=== PATIENT | female | born 1990 | race Caucasian/White ===

== ENCOUNTER 2019-10-17 13:08 | Outpatient (CLI) | payer BC ==
--- NOTE | 2019-10-17 15:04 | ULT ---
RENAL ULTRASOUND WITH DOPPLER: Trimble scale images of both kidneys. Doppler study is performed with color Doppler, spectral analysis, and velocity recordings. INDICATION: Polycystic kidneys. 26 weeks . FINDINGS: The kidneys are enlarged. The right kidney measures 19 cm in length and the left kidney measures 17 cm in length. There are numerous bilateral renal cysts. The largest right cyst is measured at appro ximately 5 cm. The largest left renal cyst is measured at 3.5 to 4.0 cm. No hydronephrosis. DOPPLER STUDY: Right renal artery/aortic ratio: 0.85. Right arcuate artery resistive index: 0.63. Left renal artery/aortic ratio: 1.80. Left renal arcuate resistive index: 0.63. The urinary bladder is mildly distended with bladder volume recorded at 42 cc. Bladder appears unrem arkable. IMPRESSION: Polycystic kidneys. POS: [facility]
== END 2019-10-17 13:09 | disposition home or self-care (01) ==
LOC: ULT 13:08
PROVIDERS: ATTEND Student in an Organized Health Care Education/Training Program
DX: Q61.2 Polycystic kidney, adult type (principal)
CPT/HCPCS: 76770; 93975

== ENCOUNTER 2019-11-07 13:04 | Inpatient (IN) | payer BC, OTHER ==
[2019-11-07] MEDS ORDERED: Calcium Gluconate 4.6 MEQ in Sodium Chloride 0.9% 100 ML IVPB PRN (13:41)
[2019-11-07] MEDS ORDERED: Magnesium Sulfate 20 gm/500 ml 20 GM/500 ML BAG ONE (13:41)
[2019-11-07] MEDS ORDERED: hydrALAZINE 20 MG/ML VIAL ONE ×2 (13:41→22:08)
[2019-11-07] MEDS ORDERED: hydrALAZINE 20 MG/ML VIAL SLOW IVP PRN (13:43)
[2019-11-07] MEDS: Lactated Ringer's 1,000 ML IV SCH ×2 (13:48→23:50)
--- NOTE | 2019-11-07 13:48 | PDOC.FPROB ---
FMR OB H&P: HPI - History of Present Illness Chief Complaint: high bp's and le swelling Indentification: 29 y/o @ 28.6 wk dated by LMP c/w 8.0 wk sono History of Present Illness: pmhx of Polycystic kidneys and cHTN not on medications, presents to L&D after a phone visit this morning with PCP Dr. Alcantara at [facility], for LE swelling. She had recently gone to [place] on vacation and forgot to take her BP cuff with her. She states over the last 1.5 weeks she has had increased swelling of the LE's and hands. Admits to pitting in her legs when her dog walked on her legs, leaving prints behind. She is unsure what her BP's have been recently. Denies CARABALLO, CP, Abd pain, vision changes, scotomas, or SOB. PT states she feels movements well, denies vag bleeding or abnormal discharge. Pt denies ctx or LOF. Pt states her diet has remained stable with no increase in sodium. Admits to drinking many fluids daily. Primary Care Physician: Quinton-KATHY FMR OB H&P: Current - Care : 1 Para: 0 Gestational age: 28.6 wks Due date: 01/24/20 Dating Criteria: LMP c/w 8.0 wk sono Course/Complications: cHTN polycystic kidneys - OB Labs Blood type: A RH: positive Antibody Screen: negative HIV: negative RPR: negative HepBsAg: negative Gonorrhea: negative Chlamydia: negative 1 hour gtt: 2 hr GTT: 75. 103. 87 A1c: 5.4% GBS: unknown H&H: 10.6/29.9 Platelets: 272 - First Trimester Ultrasound First trimester: 8.0 wk dating sono - Anatomy Survey Anatomy survey: 08/29/19: breech position, anterior placenta, 3VC, normal insertion, MVP 5.1. hadlock 90% 09/26/19: breech presentation, anterior placenta, 3VC, MVP 5.9 cm hadlock 68%. EFW 589 g @ 22.6 wga FMR OB H&P: History - Past Medical History PMH: polycystic kidneys cHTN - OB History OB History: baseline 24 hr urine pro: 65 from 07/2019 Toxoplasmosis risks in Thyroid peroxidase AB <1 Toxoplas IgM 0.339, NR - MANAGER NUCLEAR History MANAGER NUCLEAR History: ASCUS pap 06/2019, recommending colpo at 6 wks PP - Surgical History Sx History: none - Social History Social History: diet has been normal with no increased sodium intake. denies etoh, drugs or tobacco. - Family History Family History: mother: polycystics kidneys requiring kidney transplant maternal grandmother and grandfather: polycystic kidneys FMR OB H&P: Medications - Current Home Medications: Medication Instructions Recorded Confirmed Type Aspirin [Ecotrin] 81 mg PO DAILY 11/07/19 11/07/19 History Doxylamine Succinate/Vit B6 10 mg PO TID 11/07/19 11/07/19 History [Galen JEAN-BAPTISTE] Famotidine 20 mg PO BID 11/07/19 11/07/19 History Pnv No.95/Ferrous Fum/Folic AC 1 tablet PO DAILY 11/07/19 11/07/19 History [ Vitamins Tablet] Allergies/Adverse Reactions: Allergies Allergy/AdvReac Type Severity Reaction Status Date / Time No Known Allergies Allergy Unverified 11/07/19 13:53 FMR OB H&P: ROS - Review of Systems General: denies: fever/chills, fatigue Eyes: denies: eye pain, vision changes, double vision, scotomas, floaters ENT: denies: nasal congestion, sore throat Cardiovascular: reports: edema. denies: chest pain, palpitation, paroxysmal nocturnal dyspnea, orthopnea, claudication Respiratory: denies: cough, congestion, shortness of breath Gastrointestinal: reports: nausea, vomiting. denies: abdominal pain, diarrhea, constipation Genitourinary (Female): denies: incontinence, dysuria, polyuria, vaginal discharge, vaginal pain, vaginal bleeding, contractions, vaginal pressure Musculoskeletal: reports: swelling (hands and LE's). denies: pain, stiffness Neurologic: denies: numbness, syncope, seizures, weakness, loss of counsciousness, headache Integumentary: denies: itching, rash Breast: denies: skin changes Endocrine: denies: polyuria Hematologic/Lymphatic: denies: prolonged or excessive bleeding, enlarged lymph nodes Psychological: reports: anxiety FMR OB H&P: Vital Signs - Maternal Vital signs: BP upon arrival: 201/118, 207/108, 205/118 BP @ 15:45 157/88, HR 79 RR 16 Temp 99.4 F - Heart Tones Baseline: 130 Variability: moderate Acceleration: present Deceleration: absent [place] contractions every: none FMR OB H&P: Physical Exam - Physical Exam General: NAD, awake, alert and oriented HEENT: normocephalic and atraumatic, EOMI, MMM, conjunctiva clear, no scleral icterus, grossly normal vision, grossly normal hearing, good dention Neck: supple, FROM, trachea midline, no LAD, no JVD Chest: non-tender to palpation Breast: symmetric Heart: RRR, normal S1/S2, pulses present, other (soft sys murmur) Deviation from normal: Pitting edema 1+ up to knees bilaterally. General: CTAB, no respiratory distress, good air movement, no rales/rhonchi, no wheezing, no retractions Abdomen: soft, gravid, non-tender, bowel sound present Musculoskeletal: normal gait and station, pulses present, FROM in all four extremities, no misalignment/asymmetry, no atrophy Neurological: cranial nerves II through XII intact, sensation to pain,touch and proprioception grossly normal, DTR +4 (brisk DTR's at B knees and biceps), no clonus, no tremor, no focal deficit Skin: no rash, good tugor, capillary refill <2 seconds, no jaundice Lymphatic: no unusual bruising or bleeding, no purpura, no petechia Psychiatric: intact recent and remote memory, good judgement and insight, normal mood and affect FMR OB H&P: A/P - Problem List (1) Polycystic kidney disease Current Visit: Yes Status: Chronic Code(s): Q61.3 - POLYCYSTIC KIDNEY, UNSPECIFIED (2) Intrauterine Current Visit: Yes Status: Acute Code(s): Z34.90 - ENCNTR FOR SUPRVSN OF NORMAL , UNSP, UNSP TRIMESTER Comment: @ 28.6 wks (3) Chronic hypertension affecting Current Visit: Yes Status: Chronic Code(s): O10.919 - UNSP PRE-EXISTING HTN COMP , UNSP TRIMESTER (4) Severely increased blood pressure and edema during Current Visit: Yes Status: Acute Code(s): O14.10 - SEVERE PRE-ECLAMPSIA, UNSPECIFIED TRIMESTER Discussion: Date/Time: 11/07/19 1347 1. sIUP @ 28.5 wks gestation - FHT's reactive bsaeline 130, with accels and mod variability. - no ctx on TOCO - BPP ordered and 01/06. EFW ordered - Burial Vault Setter consulted appreciate recommendations - 3T labs ordered 2. cHTN with severe range pressures - Rule out superimposed Pre-E - cbc, cmp, urine pro/cr, uric acid and LDH ordered - started on Magnesium- Q4 hr mag checks - PRN hydralazine and labetalol for BP control <160/110 - MFM following pt and recommended BPP weekly starting at 32 wks, with delivery @ 38-39 wks - Consulting MFM, for further recommendations. 3. Polycystic Kidney disease - strong fhx in mother and maternal grandparents. 4. ASCUS pap 08/18 - colpo 6 wk pp This H&P was discussed with Dr. Melo and Dr. Ybarra who agree with the above documentation and plan. Addendum - Attending - Attending Attestation Date/Time: 11/07/19 5476 I personally evaluated the patient and discussed the management with Dr. Harding. I agree with the History, Examination, Assessment and Plan documented above with any addition or exceptions noted below. CKD adn cHTNnow with superimposed pre-E with severe range BP. Protein/Cr Ratio 9.8. Elevated Uric Acid. No evidence of HELLP. D/W MFM. Delivery criteria discussed. ultrasound pending.
[2019-11-07] MEDS: hydrALAZINE 20 MG/ML VIAL SLOW IVP PRN ×4 (13:49→22:09)
[2019-11-07 13:53] VITALS: BMI 34.8
[2019-11-07 14:10] LABS: #Eosinphils 0.1 thou/uL (0.0-0.7); #Lymphocytes 1.4 thou/uL (1.20-3.40); #Monocytes 0.7 thou/uL (0.11-0.59); #Neutrophils 10.5 thou/uL (1.40-6.50); %Basophils 0.2 % (0.0-1.0); %Eosinophils 0.4 % (0.0-10.0); %Lymphocytes 11.2 % (21.0-51.0); %Monocytes 5.5 % (0.0-10.0); %Neutrophils 82.6 % (42.0-75.0); Mean Corpuscular HGB CONC 36.1 g/dL (32.0-36.0); Mean Corpuscular Hemoglobin 32.7 pg (27.0-31.0); Mean Corpuscular Volume 90.5 fL (78.0-98.0); Mean Platelet Volume 8.6 fL (7.4-10.4); Platelet Count 210 thou/uL (130-400); RBC Distribution Width 11.7 % (11.5-14.5); Red Blood Cell (RBC) Count 3.36 mill/uL (4.20-5.40); White Blood Cell (WBC) Count 12.7 thou/uL (4.8-10.8)
[2019-11-07] MEDS ORDERED: Betamet Acet/Betamet Na Ph 30 MG/5 ML VIAL ONE (14:16)
[2019-11-07] MEDS: Labetalol HCl 100 MG/20 ML VIAL SLOW IVP SCH ×2 (14:24→15:00)
[2019-11-07] MEDS ORDERED: Ondansetron PF 4 MG/2 ML Vial IVP PRN (14:28)
[2019-11-07] MEDS ORDERED: Promethazine HCl 25 MG/ML VIAL IM PRN (14:28)
[2019-11-07] MEDS ORDERED: Magnesium Sulfate 20 GM/WATER 500 ML BAG IVPB SCH (14:30)
--- NOTE | 2019-11-07 14:40 | PDOC.BPN ---
- Brief Progress Note Pt's BP readings severe range X3 200's/110's back to back. Pt immediately given 10mg IV hydralazine, and started on 6 gm loading dose of magnesium BP 180s/100s. Repeat 10 hydralazine mg given IV. BP still elevated severe range. Given Lobetalol 10 mg. BP reading 160/89. Pt stable. No CARABALLO, Abd pain, scotomas, CP or SOB. Dr. Melo present and in agreement with above immediate action plan for pt. Monitoring BP readings closely, PRE-E Labs pending.
[2019-11-07 14:41] LABS: ALT (SGPT) 16 U/L (8-55); AST (SGOT) 20 U/L (5-34); Albumin 3.2 g/dL (3.5-5.0); Alkaline Phosphatase 69 U/L (40-110); Anion Gap 15 mmol/L (10-20); BUN (Urea Nitrogen) 14 mg/dL (7.0-18.7); Bilirubin, Total 0.3 mg/dL (0.2-1.2); Calc. Creatinine Clearance 206 mL/min (70-130); Calcium 8.7 mg/dL (7.8-10.44); Carbon Dioxide 20 mmol/L (22-29); Chloride 109 mmol/L (98-107); Estimated GFR-MDRD Greater than 90; Globulin 2.5 g/dL (2.4-3.5); Glucose 102 mg/dL (70-105); Magnesium 1.6 mg/dL (1.6-2.6); Potassium 3.6 mmol/L (3.5-5.1); Protein, Total 5.7 g/dL (6.0-8.3); Sodium 140 mmol/L (136-145)
[2019-11-07] MEDS: Betamet Acet/Betamet Na Ph 30 MG/5 ML VIAL IM SCH (14:44)
[2019-11-07 15:23] LABS: HBSAg Index 0.26 S/CO (0-0.99); Hep B Surf Ag Non-Reactive S/CO (NonReactive)
--- NOTE | 2019-11-07 15:29 | ULT ---
Sonographic biophysical profile exam Obstetric sonogram Limited HISTORY: Gestational hypertension. FINDINGS: Single intrauterine gestation in cephalic presentation. Grade 0 placenta is anterior. No ev idence of previa. Amniotic fluid index 13.6. Cervix closed and 4.6 cm. At real-time sonography, good tone, breathing movements, and gross movements were demonstrated. IMPRESSION : Sonographic biophysical profile score 8/8. No abnormalities are demonstrated.
[2019-11-07 15:35] LABS: Syphilis Antibody Nonreactive (Nonreactive); Syphilis Antibody Index 0.05 S/CO (<1.00 Non-Reactive)
[2019-11-07] MEDS: Labetalol HCl 100 MG/20 ML VIAL ONE ×2 (15:35→16:34)
[2019-11-07 15:52] LABS: Creatinine, Urine 89.31 mg/dL (47-110)
--- NOTE | 2019-11-07 16:17 | ULT ---
ULTRASOUND OBSTETRICAL COMPLETE: DATE: 11/07/2019 HISTORY: 29-year-old female. weight desired FINDINGS: number: Iglesias lie: Cephalic Maternal cervix: Not imaged Placenta: Anterior. No placenta previa. Amniotic fluid volume: GIA = 12cm heart rate: 141 bpm anatomy not evaluated biometry: Biparietal diameter (BPD): 7.8 cm 31 w 1 d Head circumference (HC): 28.5 cm 31 w 2 d Abdominal circumference (AC): 25.4 cm 29 w 4 d Femur length (FL): 5.4 cm 28 w 5 d Average ultrasound age (AUA): 30 w 1 d Estimated date of delivery (IVA): 01/15/2020 Estimated weight (EFW): 1419 g +/- 210 g IMPRESSION: 1) Live 3rd trimester intrauterine gestation. 2) Estimated gestational age of 30 weeks, 6 1 days 3) cephalic lie. 4) Estimated weight (EFW): 1419 g +/- 210 g
--- NOTE | 2019-11-07 16:21 | PDOC.BPN ---
- Brief Progress Note Discussed the pt's case with MFM, Dr. Carrillo, he suspects this is a cHTN exacerbation and recommends starting HCTZ 25 mg BID and labetalol 100 mg TID. Will f/u with Dr. Carrillo once all pre-e labs (urine pro/cr) is back, for further recommendations. EFW: 1419 g dated 30.1 wk anterior placenta and vertex presentation
--- NOTE | 2019-11-07 16:21 | PDOC.APC ---
Antepartum Consult GILES WILLARD is a 29 year old female at [28 6/7] gestational weeks. I was asked by Dr Alcantara to speak with the patient regarding anticipated course for a baby born at 28-29 weeks. I outlined that the timing and mode of delivery is a decision that will be made by the OB/FMC service. Once the patient is taken for delivery, the resuscitation team will be present. The initial focus will be on respiratory stabilization and may include CPAP or intubation with surfactant administration. I discussed that the patient will need to be admitted to the NICU in an Isolette due to temperature instability associated with prematurity. We will then obtain umbilical IV access as babies are at risk for hypoglycemia and will need IV nutrition. We discussed that babies born are at higher risk for feeding intolerance, infection and jaundice. We discussed the risk of NEC and that breastmilk is the best nutrition for babies and she is strongly encouraged to pump after delivery. Mother does plan to breastfeed and we discussed the availability of donor milk and mom consented to use. We discussed slowly increasing enteral feedings and the use of TPN while increasing feeding volumes. I outlined the need for a feeding tube (OG or NG) until suck/swallow/breathe reflex can be established. We discussed he will need ROP exams given the risk for abnormal retinal development and head US screening for IVH. I explained that the duration of hospital stay will be determined on the clinical course of the baby. I outlined the milestones that needed to be achieved to ensure safe discharge home. They had the opportunity to ask questions which were answered to their satisfaction. I encouraged them to contact our service again if additional questions arise. I spent a total of 20 minutes with patient & family with greater than 50% of the time counseling & coordinating care. Labs: Ante Labs Blood Type A POSITIVE 11/07/19 15:05 Hep Bs Antigen Non-Reactive S/CO (NonReactive) 11/07/19 13:59
--- NOTE | 2019-11-07 17:06 | PDOC.BPN ---
- Brief Progress Note Per MFM Dr. Carrillo recs: IUP @ 28.6 wks with maternal PCKD now with severe preeclampsia -steroids today and tomorrow - Mg for neuroprotection X12 hours -HELLP labs every 8 hours to confirm stability, when stable X2 draws please space out to twice weekly - twice weekly BPP - growth every 3 weeks - HCTZ 25 BID (don't go up on this) - Labetalol 100 TID (increase this for severe range values by 100) - In house till delivery - Deliver at 34w or sooner for max labetalol dose, neurological signs of severe disease, abnormal hellp labs, nrfht, BPP less than 6/10.
[2019-11-07 17:22] LABS: HIV (1/2) Antibody/Antigen Non-Reactive (NonReactive); HIV 1/2 INDEX 0.11 S/CO (<1.00)
--- NOTE | 2019-11-07 18:26 | PDOC.BPN ---
<Teresita Harding - Last Filed: 11/07/19 18:22> - Brief Progress Note S: pt resting, c/o CARABALLO. PT had episode of n/v which has resolved now. O: vitals: BP 166/92, HR 78. urine output 45 ml this hour and 100 ml last hour heart: RRR, soft sys murmur lungs: CTAB extremities: DTR's 2+ at B knees A&P: Pre-Eclampsia with severe features - q6hr mag levers - q4h mag checks - urine output stable, contineu LR @ 125 ml/hr and mag for 24 hours for severe range pressure in Pre-E and neuroprotection to fetus. - PRN meds and PO labetalol/HCTZ given. - Tylenol 1 g for CARABALLO given <Munir Brody - Last Filed: 11/07/19 19:52> Addendum - Attending - Attending Attestation Date/Time: 11/07/191946 I received checkout from Dr. Melo @ ~ 5 pm that BP well controlled with 2 doses of IV hydralazine and subsequent administration of po labetalol and hctz was going to take place. Subsequently notified by resident @ 642 of persistent pressures. When I arrived multiple doses of labetalol had been given previously and most recent BP's in non-severe range. Immediately after my exam repeat BP was in the 160's. I spoke with Dr. Durant who recommended lasix 20 mg IV and then to subsequently given labetalol if necessary. I spoke with patient. Her headache has improved with APAP. She has no RUQ pain or NATO pain. Her lungs are clear, she has no clonus. She is aware of the plan. Dr. Banks was updated, as well as Dr. Alcantara, her PCP.
[2019-11-07] MEDS: Acetaminophen 500 MG TAB PO PRN (18:32)
[2019-11-07] MEDS ORDERED: Labetalol HCl 100 MG/20 ML VIAL SLOW IVP PRN (19:48)
--- NOTE | 2019-11-07 19:53 | PDOC.BPN ---
<Tim Batista - Last Filed: 11/07/19 19:51> - Brief Progress Note Patient continues to have severe range pressures Headache feeling better Reflexes and U/O appropriate Discussed possibility, r/b/a, for c/s with patient, she is in understanding. Discussed case with MFM, rec'd lasix 20mg IV. Then labetalol 80 mg IV if needed. If pressures are still severe would need c/s per MFM. Will follow closely. <Munir Brody - Last Filed: 11/07/19 22:11> Addendum - Attending - Attending Attestation Date/Time: 11/07/19 9871 see my prior attestation.
[2019-11-07] MEDS ORDERED: Furosemide 20 MG/2 ML VIAL SLOW IVP SCH (20:00)
[2019-11-07] MEDS ORDERED: Lorazepam 2 MG/ML VIAL SLOW IVP PRN (20:13)
--- NOTE | 2019-11-07 20:37 | PDOC.BPN ---
<Tim Batista - Last Filed: 11/07/19 20:34> - Brief Progress Note patient received 20mg IV lasix another severe range pressure >10 min after lasix 80mg IV labetalol given Discussed prognosis with patient and at bedside Will monitor BP for another 15 min, if persistently elevated will likely need to proceed with c/s. PCP updated <Munir Brody - Last Filed: 11/07/19 22:12> Addendum - Attending - Attending Attestation Date/Time: 11/07/19 2211 BP lowered with labetalol 80 to nonsevere range.
[2019-11-07] MEDS: Magnesium Sulfate 20 gm/500 ml 20 GM/500 ML BAG IVPB SCH (20:54)
[2019-11-07] MEDS ORDERED: Hydrochlorothiazide 25 MG TAB PO SCH (21:00)
[2019-11-07] MEDS ORDERED: Labetalol 100 MG TAB PO SCH (21:00)
--- NOTE | 2019-11-07 22:15 | PDOC.LDPN ---
Labor & Delivery Progress Note - Subjective Subjective: other (headache) - Objective Abnormal vital signs: x2 systolics in the 160's since labetalol 80 mg Uterine fundus: non tender FHT: category 1, variability present (+accels, no decels) [place] contractions every: quiet - Assessment (1) Pre-eclampsia, severe Code(s): O14.10 - SEVERE PRE-ECLAMPSIA, UNSPECIFIED TRIMESTER Current Visit: Yes Status: Acute Plan: other -: Discussed patient with Dr. Banks and asked for formal consultation. Repeat bp's have again risen to the severe range. After discussion will trial hydralazine 10 mg again, previous treatment discussed in detail with Dr. Banks. If pressures are uncontrollable will proceed with delivery. Discussed with patient and and they voice understanding and agreement.
[2019-11-07 22:31] LABS: Platelet Count 209 thou/uL (130-400)
[2019-11-07 23:02] LABS: Bilirubin, Total 0.4 mg/dL (0.2-1.2)
[2019-11-07 23:06] LABS: ALT (SGPT) 16 U/L (8-55); AST (SGOT) 20 U/L (5-34); Alkaline Phosphatase 67 U/L (40-110); Bilirubin, Direct 0.2 mg/dL (0.1-0.3); Bilirubin, Total 0.4 mg/dL (0.2-1.2); Protein, Total 5.9 g/dL (6.0-8.3)
[2019-11-07] MEDS ORDERED: NIFEdipine XL 30 MG TAB PO SCH (23:30)
[2019-11-07] MEDS: Metoclopramide HCl 10 MG/2 ML VIAL IVP PRN (23:36)
[2019-11-07] MEDS: diphenhydrAMINE 50 MG/ML VIAL IVP PRN (23:36)
[2019-11-07] MEDS ORDERED: hydrALAZINE 20 MG/ML VIAL SLOW IVP SCH (23:45)
--- NOTE | 2019-11-07 23:58 | PDOC.BPN ---
<Tim Batista - Last Filed: 11/07/19 23:55> - Brief Progress Note Mag check Interval update: Dr. Banks consulted. Gave Benadryl, Reglan, procardia. Gave another PRN hydralazine. Pressure were mild range, last pressure 161/94 just after receiving procardia S: CARABALLO about the same, just received benadryl, reglan O: vitals: BP 161/94 P81 extremities: DTR's 2+ at B knees, no clonus U/O 100ml/hr over last 4 hrs A/P Goal is to achieve 48 hrs post steroids Discussed with family r/b/a of cautiously waiting vs c/s. Voiced understanding. If pressures continue severe range may need c/s later tonight Discussed with attending <Munir Brody - Last Filed: 11/08/19 11:28> Addendum - Attending - Attending Attestation Date/Time: 11/08/[address] Batista and Darren.
[2019-11-08] MEDS: Metoclopramide HCl 10 MG/2 ML VIAL IVP PRN ×3 (00:10→01:13)
[2019-11-08] MEDS: hydrALAZINE 20 MG/ML VIAL SLOW IVP PRN ×4 (00:36→19:47)
[2019-11-08] MEDS: diphenhydrAMINE 50 MG/ML VIAL IVP PRN (00:41)
[2019-11-08 00:50] LABS: Hemoglobin 11.1 g/dL (12.0-16.0); Mean Corpuscular HGB CONC 34.9 g/dL (32.0-36.0); Mean Corpuscular Volume 91.6 fL (78.0-98.0); Mean Platelet Volume 9.1 fL (7.4-10.4); Platelet Count 222 thou/uL (130-400); RBC Distribution Width 12.2 % (11.5-14.5); Red Blood Cell (RBC) Count 3.48 mill/uL (4.20-5.40); White Blood Cell (WBC) Count 18.1 thou/uL (4.8-10.8)
--- NOTE | 2019-11-08 03:49 | CON ---
DATE OF CONSULTATION: 11/08/2019 PRIMARY HEEL BREASTER: Josiane Alcantara MD CHIEF COMPLAINT: Uncontrolled blood pressures. HISTORY OF PRESENT ILLNESS: The patient is a 29-year-old G1, P0 female with an antepartum course complicated by polycystic kidneys and admitted to the hospital for elevated blood pressures. The patient was noted to have pressures on arrival in the 200s systolic, which initially was brought down to the 160s with 10 of hydralazine. Over the subsequent 10 hours, attempts were made to control the patient's blood pressure with IV labetalol without consistent success. REFRIGERATOR REPAIRMAN was consulted for input on management options for the patient. In reviewing the patient's medications with Dr. Batista and Dr. Brody, the patient was noted to have 10 of hydralazine and then multiple doses of IV labetalol up to 80 mg at a time x2 doses without significant benefit. In reviewing this medication course, the patient was noted to have a good response initially with hydralazine, and orders were made for the patient to receive a second dose. At the time of my evaluation, the patient reported a horrible headache. She confirmed her history of polycystic kidneys, but reports that she has never been on any antihypertensive medications until this admission. The patient reports headache. Denies fever. Denies chest pain, shortness of breath. The patient has vomited during this hospitalization. Denies abdominal pain, or vision changes. PAST MEDICAL HISTORY: Significant for chronic hypertension, off medication today, and polycystic kidneys. PAST SURGICAL HISTORY: Negative. ALLERGIES: NO KNOWN DRUG ALLERGIES. MEDICATIONS: 1. Aspirin. 2. Doxylamine 10 mg p.o. t.i.d. 3. Famotidine. 4. vitamin. Medications at this hospitalization, the patient has received; 1. Betamethasone 1 dose for lung maturity with the next dose in 24 hours. 2. Hydrochlorothiazide 25 mg p.o. b.i.d. 3. Magnesium for seizure prophylaxis. 4. P.o. labetalol 100 mg p.o. t.i.d., again increasingly larger doses of IV labetalol up to 80 mg. OB LABS: Blood type is A positive. Antibody screen is negative. HIV is negative. RPR is nonreactive. Hepatitis B surface antigen nonreactive. GC and chlamydia negative. Her 2-hour Glucola was 75, 103, and 87. H and H 10.6 and 29, platelets of 272,000. Labs in this hospitalization shows significant proteinuria with a protein to creatinine ratio of approximately 10. LFTs are within normal limits. Creatinine is 0.6, uric acid is 7.2. REVIEW OF SYSTEMS: Per HPI. PHYSICAL EXAMINATION: VITAL SIGNS: At the time of my evaluation, the patient was noted to have severe range pressures in the 160s over 90s. GENERAL: She appeared to be miserable with a bad headache. She is otherwise alert, oriented, cooperative, pleasant to interact with. HEAD: Normocephalic and atraumatic. LUNGS: Clear to auscultation bilaterally. HEART: Has a regular rate and rhythm. ABDOMEN: Gravid. heart tracing shows the fetus with a baseline in the 120s with moderate long-term variability, positive 15 x 15 accelerations, no decelerations. ASSESSMENT AND PLAN: The patient is a 29-year-old female with an intrauterine at 29 weeks, complicated by polycystic kidneys and chronic hypertension, off medications. Recommendations have been made to convert the patient over from labetalol, which does not seem to be working effectively to hydralazine, which appeared to bring her initial pressures down significantly with one dose of 10 mg. The patient has received a couple of doses of hydralazine over the last several hours and seems to have overall better blood pressure control. The patient has been counseled for the increased risk necessitating a for delivery. I have also counseled the nursing staff the regimen for migraine protocol in an attempt to control her headache, which upon the use seems to drastically improve her headache by about 50% on her initial couple doses. On re-evaluation, the patient was noted to be sleeping soundly. We will be keeping a close eye on her. She is planning on receiving a second dose of betamethasone tomorrow morning or tomorrow afternoon about 2 o'clock and she has been given Procardia XL 30 mg now and anticipate possible needs for IV hydralazine in the short run and adjustments to this medication further. Job ID: [id number]
--- NOTE | 2019-11-08 04:18 | PDOC.BPN ---
<Tim Batista - Last Filed: 11/08/19 04:18> - Brief Progress Note Mag check S: CARABALLO improved, sleeping comfortably, has been receiving reglan/benadryl O: vitals: only 1 severe range BP since midnight P81 extremities: DTR's 2+ at B knees, no clonus, strength equal and intact at upper and lower ext U/O ~100ml/hr A/P Goal is to achieve 48 hrs post steroids HCTZ, Nifedipine scheduled Hydralazine PRN <Munir Brody - Last Filed: 11/08/19 11:29> Addendum - Attending - Attending Attestation Date/Time: 11/08/19 1129 I personally evaluated the patient and discussed the management with Dr. Batista. I agree with the History, Examination, Assessment and Plan documented above with any addition or exceptions noted below.
[2019-11-08] MEDS: Magnesium Sulfate 20 gm/500 ml 20 GM/500 ML BAG IVPB SCH (06:33)
--- NOTE | 2019-11-08 06:56 | PDOC.OBAPN ---
FMR OB AP PN: Sub - Interval History Hospital Day: 2 Chief Complaint: headache Indentification: Interval History: 1 severe range pressure since 0030 after switching KEMAR oral meds FMR OB AP PN: Obj - Maternal Vital signs: BP: 131/66 HR: 81 Wt: 103.873 kg - Urine output I&O: UO/hr last 4 hours: 60ml, 50ml, 15ml, 15ml - Heart Tones [place] contractions every: none noted FMR OB AP PN: Exam - Physical Exam General: NAD, awake, alert and oriented HEENT: MMM, no scleral icterus, grossly normal vision, grossly normal hearing Neck: supple, FROM Heart: RRR, normal S1/S2, no murmurs/rubs/gallops, pulses present, other ( improved B/L LE edema comparted to yesterday) General: CTAB, no respiratory distress, good air movement, no rales/rhonchi, no wheezing, no retractions Abdomen: gravid Musculoskeletal: normal gait and station, FROM in all four extremities Neurological: cranial nerves II through XII intact, sensation to pain,touch and proprioception grossly normal, DTR +2, no clonus, no focal deficit Skin: no rash, good tugor Lymphatic: no unusual bruising or bleeding, no purpura, no petechia Psychiatric: intact recent and remote memory, good judgement and insight, normal mood and affect FMR OB AP PN: Data - Labs Lab results: Laboratory Results - last 24 hr 11/07/19 11/07/19 11/07/19 13:50 13:50 13:59 WBC RBC Hgb Hct MCV MCH MCHC RDW Plt Count MPV Neutrophils % Lymphocytes % Monocytes % Eosinophils % Basophils % Neutrophils # Lymphocytes # Monocytes # Eosinophils # Basophils # Sodium 140 Potassium 3.6 Chloride 109 H Carbon Dioxide 20 L Anion Gap 15 BUN 14 Creatinine 0.66 Estimated GFR (MDRD) Greater than 90 Glucose 102 Uric Acid 7.2 H Calcium 8.7 Magnesium 1.6 Total Bilirubin 0.3 Direct Bilirubin AST 20 ALT 16 Alkaline Phosphatase 69 Lactate Dehydrogenase 212 Serum Total Protein 5.7 L Albumin 3.2 L Globulin 2.5 Albumin/Globulin Ratio 1.3 U Random Total Protein Urine Creatinine Syphilis IgG/IgM Ab Hep Bs Antigen HIV 1&2 Antigen & Ab Blood Type Antibody Screen 11/07/19 11/07/19 11/07/19 13:59 13:59 13:59 WBC 12.7 H RBC 3.36 L Hgb 11.0 L Hct 30.4 L MCV 90.5 MCH 32.7 H MCHC 36.1 H RDW 11.7 Plt Count 210 MPV 8.6 Neutrophils % 82.6 H Lymphocytes % 11.2 L Monocytes % 5.5 Eosinophils % 0.4 Basophils % 0.2 Neutrophils # 10.5 H Lymphocytes # 1.4 Monocytes # 0.7 H Eosinophils # 0.1 Basophils # 0.0 Sodium Potassium Chloride Carbon Dioxide Anion Gap BUN Creatinine Estimated GFR (MDRD) Glucose Uric Acid Calcium Magnesium Total Bilirubin Direct Bilirubin AST ALT Alkaline Phosphatase Lactate Dehydrogenase Serum Total Protein Albumin Globulin Albumin/Globulin Ratio U Random Total Protein Urine Creatinine Syphilis IgG/IgM Ab Hep Bs Antigen Non-Reactive HIV 1&2 Antigen & Ab Blood Type A POSITIVE Antibody Screen NEGATIVE 11/07/19 11/07/19 11/07/19 13:59 13:59 15:05 WBC RBC Hgb Hct MCV MCH MCHC RDW Plt Count MPV Neutrophils % Lymphocytes % Monocytes % Eosinophils % Basophils % Neutrophils # Lymphocytes # Monocytes # Eosinophils # Basophils # Sodium Potassium Chloride Carbon Dioxide Anion Gap BUN Creatinine Estimated GFR (MDRD) Glucose Uric Acid Calcium Magnesium Total Bilirubin Direct Bilirubin AST ALT Alkaline Phosphatase Lactate Dehydrogenase Serum Total Protein Albumin Globulin Albumin/Globulin Ratio U Random Total Protein Urine Creatinine Syphilis IgG/IgM Ab Nonreactive Hep Bs Antigen HIV 1&2 Antigen & Ab Non-Reactive Blood Type A POSITIVE Antibody Screen 11/07/19 11/07/19 11/07/19 15:08 22:23 22:23 WBC RBC Hgb Hct MCV MCH MCHC RDW Plt Count MPV Neutrophils % Lymphocytes % Monocytes % Eosinophils % Basophils % Neutrophils # Lymphocytes # Monocytes # Eosinophils # Basophils # Sodium Potassium Chloride Carbon Dioxide Anion Gap BUN Creatinine Estimated GFR (MDRD) Glucose Uric Acid Calcium Magnesium Total Bilirubin 0.4 Direct Bilirubin AST ALT Alkaline Phosphatase Lactate Dehydrogenase 232 H Serum Total Protein Albumin Globulin Albumin/Globulin Ratio U Random Total Protein 833 H Urine Creatinine 89.31 Syphilis IgG/IgM Ab Hep Bs Antigen HIV 1&2 Antigen & Ab Blood Type Antibody Screen 11/07/19 11/07/19 11/07/19 22:23 22:23 22:23 WBC 18.1 H RBC 3.48 L Hgb 11.1 L Hct 31.9 L MCV 91.6 MCH 32.0 H MCHC 34.9 RDW 12.2 Plt Count 209 222 MPV 9.1 Neutrophils % Lymphocytes % Monocytes % Eosinophils % Basophils % Neutrophils # Lymphocytes # Monocytes # Eosinophils # Basophils # Sodium Potassium Chloride Carbon Dioxide Anion Gap BUN Creatinine Estimated GFR (MDRD) Glucose Uric Acid Calcium Magnesium 5.0 H Total Bilirubin 0.4 Direct Bilirubin 0.2 AST 20 ALT 16 Alkaline Phosphatase 67 Lactate Dehydrogenase Serum Total Protein 5.9 L Albumin 3.0 L Globulin Albumin/Globulin Ratio U Random Total Protein Urine Creatinine Syphilis IgG/IgM Ab Hep Bs Antigen HIV 1&2 Antigen & Ab Blood Type Antibody Screen FMR OB AP PN: A/P - Problem List (1) Intrauterine Current Visit: Yes Status: Acute Code(s): Z34.90 - ENCNTR FOR SUPRVSN OF NORMAL , UNSP, UNSP TRIMESTER Comment: @ 28.6 wks (2) Pre-eclampsia, severe Current Visit: Yes Status: Acute Code(s): O14.10 - SEVERE PRE-ECLAMPSIA, UNSPECIFIED TRIMESTER (3) Chronic hypertension affecting Current Visit: Yes Status: Chronic Code(s): O10.919 - UNSP PRE-EXISTING HTN COMP , UNSP TRIMESTER (4) Polycystic kidney disease Current Visit: Yes Status: Chronic Code(s): Q61.3 - POLYCYSTIC KIDNEY, UNSPECIFIED Disposition: 29YO @ 29 WGA by LMP c/w 8 week sono who presented to L&D for evaluation for severe peripheral edema and was found to have developed pre-e with severe range pressures superimposed on cHTN. # cHTN with superimposed pre-e with severe features - Patient presented to L&D with multiple severe range pressures as high as 200s systolic. Other than LE edema was completely asymptomatic. Urine protein creatinine ratio ~9 with significant proteinuria & uric acid just over 7. - Was given IV hydralazine x2 & IV labetalol x3 before BP got below severe range temporarily. Was started on Magnesium which she is still on. Becoming oliguric over last several hours with most recent UO 15mL/hr. CMP pending for this AM & will increase fluid rate and give a 500mL bolus as well. Per [facility] if becoming oliguric will need to be delivered. - Last severe range pressure 167/97 @ 00:30; otherwise, no severe range pressures since. Reports a persistent CARABALLO but markedly improved. - Continue PRN hydralazine & KEMAR procardia & HCTZ for BP control with goal to get BP controlled to delay delivery for at least an additional 1-2 weeks per MFM. - HELLP labs WNLs overnight which is reassuring with repeat labs pending for this AM. - MFM & laborists following pt and will keep them updated over course of today. # sIUP @ 29 wks gestation - BPP 8/8 on admission & EFW ~1419g. - Surgical Consultant on board & educated parents on likely course in anticipation of possible need for delivery if BPs remain uncontrolled. Appreciate the consultation and recommendations. - Continue PNVs. # Polycystic Kidney disease - Aware,noted incidentally on US during . Most likely reason for cHTN. Will need nephro follow-up following delivery. # ASCUS pap 08/18 - colpo 6 wk pp Dispo: Will continue IV magnesium and KEMAR & PRN meds as noted above for BP control with close monitoring in the L&D ICU pending [facility] recs. Discussion: Date/Time: 11/08/19 0654 This H&P was discussed with Dr. Carrillo and Dr. Melo who agree with the above documentation and plan. Addendum - Attending - Attending Attestation Date/Time: 11/08/19 1102 I personally evaluated the patient and discussed the management with Tate Juarez. I agree with the History, Examination, Assessment and Plan documented above with any addition or exceptions noted below. Nicolette and her and I ahd a healthy discussion regarding diagnoses, current therapy and monitoring and what things we are watching for such as CARABALLO, visual changes, abd pain, limited urine output, worsening labs, worsening BPP, and severe range BP in spite of maximal therapy. They expressed thier feelings of anxiety and frustration that this long-awaited was burdened with such difficulty. I expressed our shared concern for Nicolette and the baby, and that we are working toward her and her baby being healthy. They are appreciative of our care.
[2019-11-08 07:23] LABS: Hemoglobin 10.8 g/dL (12.0-16.0); Mean Corpuscular HGB CONC 33.8 g/dL (32.0-36.0); Mean Corpuscular Hemoglobin 31.2 pg (27.0-31.0); Mean Corpuscular Volume 92.5 fL (78.0-98.0); Mean Platelet Volume 8.4 fL (7.4-10.4); Platelet Count 247 thou/uL (130-400); RBC Distribution Width 12.2 % (11.5-14.5); Red Blood Cell (RBC) Count 3.46 mill/uL (4.20-5.40); White Blood Cell (WBC) Count 22.8 thou/uL (4.8-10.8)
[2019-11-08 07:35] LABS: Bilirubin, Total 0.4 mg/dL (0.2-1.2)
[2019-11-08 07:39] LABS: ALT (SGPT) 14 U/L (8-55); AST (SGOT) 19 U/L (5-34); Albumin 2.9 g/dL (3.5-5.0); Alkaline Phosphatase 75 U/L (40-110); Bilirubin, Direct 0.2 mg/dL (0.1-0.3); Bilirubin, Total 0.4 mg/dL (0.2-1.2); Magnesium 6.3 mg/dL (1.6-2.6); Protein, Total 5.8 g/dL (6.0-8.3)
[2019-11-08 08:05] LABS: Anion Gap 16 mmol/L (10-20); BUN (Urea Nitrogen) 14 mg/dL (7.0-18.7); Calc. Creatinine Clearance 209 mL/min (70-130); Calcium 7.7 mg/dL (7.8-10.44); Carbon Dioxide 18 mmol/L (22-29); Chloride 105 mmol/L (98-107); Estimated GFR-MDRD Greater than 90; Glucose 111 mg/dL (70-105); Potassium 3.4 mmol/L (3.5-5.1); Sodium 136 mmol/L (136-145)
[2019-11-08] MEDS ORDERED: Potassium Chloride 20 MEQ TAB PO SCH (08:15)
[2019-11-08] MEDS ORDERED: Sodium Chloride 0.9% 500 ML IV SCH (08:15)
--- NOTE | 2019-11-08 08:32 | PRG ---
DATE OF SERVICE: 11/08/2019 SUBJECTIVE: The patient is a 29-year-old female with an intrauterine at 29 weeks and 0 days, today admitted to the hospital for concerns of severe range of blood pressures in the setting of polycystic kidney disease and chronic hypertension. [employer] was consulted last night with concerns of persistent severe pressures were unrelenting to IV labetalol. Decision was made to convert her over to hydralazine, which seems to be keeping her pressures down well with p.o. Procardia 30 mg daily. Since this transition, she has only required 2 doses of IV hydralazine with her last dose being at 1 o'clock this morning. The p.o. Procardia was started last night and seems to be have taken effect. The patient reports that her headache this morning is still present, but much improved from where she was last night and has no other complaints. Current blood pressure is 131/66, heart rate of 81. Fetus is showing earlier this morning baseline in the 120s with moderate long-term variability. She has not had any monitoring since about 2:30. Urine output has fallen off about 5 o'clock this morning to 10-15cc an hour over the last couple hours. She was given a dose of Lasix last night, which may have depleted her intravascular space too much in combination with the hydralazine. We have asked the patient to increase her p.o. intake this morning. She may require a fluid bolus of about 250 to 500 cc. ASSESSMENT AND PLAN: The patient is a 29-year-old female with an intrauterine at 29 weeks, admitted for concerns of exacerbated chronic hypertension with exacerbation versus preeclampsia with severe features complicated by cystic kidney disease. The patient appears to be having blood pressures under much more tolerable levels with the Procardia XL 30 mg daily. We would recommend continuation of that medication. Should she need adjustments to medication in the future, increasing her dosing to b.i.d. would be one option. Should her urine output continue to be a problem other etiologies would need to be considered. Thank you for the opportunity to participate in Ms. Page's care. Should there be any more questions or we can help in any further way, please do not hesitate to let us know. Job ID: [id number] [facility]
[2019-11-08] MEDS: NIFEdipine XL 30 MG TAB PO SCH ×2 (09:01→21:16)
[2019-11-08] MEDS: Hydrochlorothiazide 25 MG TAB PO SCH ×3 (09:02→21:03)
[2019-11-08] MEDS: Lactated Ringer's 1,000 ML IV SCH ×2 (09:58→19:11)
[2019-11-08] MEDS ORDERED: Aspirin 81 mg Enteric Coated Tablet PO SCH (11:00)
--- NOTE | 2019-11-08 13:29 | PDOC.BPN ---
- Brief Progress Note Mag check S: Pt denies CARABALLO, SOB, visual changes/scotomas, abd pain. sleeping comfortably. O: vitals: No further severe range BP's this morning. high 159 systolic. mainly 140's sys/60-70's. 145/76, 83 HR lungs: CTAB extremities: DTR's 2+ at B knees and biceps, no clonus U/O 50/263/40/117 last 4 hours. A/P HCTZ, Nifedipine scheduled Hydralazine PRN Pt stable on Mag. Currently planning to d/c mag after 24 hours of treatment.
[2019-11-08] MEDS: Betamet Acet/Betamet Na Ph 30 MG/5 ML VIAL IM SCH (14:40)
[2019-11-08] MEDS: Acetaminophen 500 MG TAB PO PRN ×2 (14:56→21:15)
[2019-11-08] MEDS ORDERED: NIFEdipine XL 30 MG TAB PO SCH ×2 (16:00→21:00)
--- NOTE | 2019-11-08 18:57 | PDOC.BPN ---
- Brief Progress Note Approximately 15:15 pt had severe range pressure X2, 15 minutes apart. Pt given hydralazine 10 mg and the next readings were no longer severe range. Consulted with M, Dr. Carrillo, who states that it would be appropriate to increase the procardia XL dose to BID 30mg and to not go over 60 mg BID, or [address] Melo notified and aware/in agreement with the plan. Pt was switched to procardia 30 mg BID An afternoon dose was given @ 1600 of Procardia XL 30 mg Pt's BP's responded well to the changes made. Dr. Wan present for all of the above changes as well.
--- NOTE | 2019-11-09 02:11 | PDOC.BPN ---
<José Nunesis - Last Filed: 11/09/19 02:11> - Brief Progress Note Pt resting in bed. Pt has had no severe range pressures noted since receiving another dose of Procardia 30 mg yesterday evening. BP ranges from 140's-150's. Pt Urine Output has decreased from 25/hr to 40/hr overnight. IVF was stopped ealier yesterday. Continue to monitor O2 sats ranging 93-95%. No prior recordings noted by me or nursing. Phys Exam General: In no acute distress. Pt resting comfortably at this time. Cardio: RRR, no mumurs or gallops Lungs CTA-B, no wheezes or crackles Has pitting edema in hands and LE. Neuro: DTR +2, no clonus noted. Dispo: At this time pt BP stable. continue to monitor. Will continue increased procardia dose. Continue monitoring O2 sats. Urine Output decreased will continue to monitor. <Munir Brody - Last Filed: 11/09/19 08:33> Addendum - Attending - Attending Attestation Date/Time: 11/09/19 0833 Continue to monitor UOP, BP.
[2019-11-09 03:47] LABS: Hemoglobin 11.9 g/dL (12.0-16.0); Mean Corpuscular HGB CONC 33.9 g/dL (32.0-36.0); Mean Corpuscular Hemoglobin 31.5 pg (27.0-31.0); Mean Corpuscular Volume 92.9 fL (78.0-98.0); Mean Platelet Volume 8.2 fL (7.4-10.4); Platelet Count 254 thou/uL (130-400); RBC Distribution Width 12.8 % (11.5-14.5); Red Blood Cell (RBC) Count 3.77 mill/uL (4.20-5.40); White Blood Cell (WBC) Count 24.5 thou/uL (4.8-10.8)
[2019-11-09 04:07] LABS: ALT (SGPT) 14 U/L (8-55); AST (SGOT) 19 U/L (5-34); Alkaline Phosphatase 65 U/L (40-110); Anion Gap 15 mmol/L (10-20); BUN (Urea Nitrogen) 18 mg/dL (7.0-18.7); Bilirubin, Total 0.4 mg/dL (0.2-1.2); Calc. Creatinine Clearance 189 mL/min (70-130); Calcium 7.3 mg/dL (7.8-10.44); Carbon Dioxide 18 mmol/L (22-29); Chloride 106 mmol/L (98-107); Estimated GFR-MDRD Greater than 90; Glucose 123 mg/dL (70-105); Potassium 3.6 mmol/L (3.5-5.1); Sodium 135 mmol/L (136-145)
[2019-11-09 04:17] LABS: Band 11 % (5-11); Lymphocytes 1 % (21-51); MDiff Complete? YES; Monocytes 2 % (0-10); Myelocyte 1 % (0-0); Neutrophil 85 % (42-75)
--- NOTE | 2019-11-09 06:57 | PDOC.OBAPN ---
FMR OB AP PN: Sub - Interval History Hospital Day: 3 Chief Complaint: swelling Indentification: @ 29.1 WGA by LMP c/w 6.2 week sono Interval History: Severe range pressures w/ increased edema & oliguira overnight. FMR OB AP PN: Obj - Maternal Vital signs: BP: 160/84-->158/94 HR: 90 Pox: 96% on RA Wt: 103 kg - Urine output I&O: UO since ~2300 on 11/07 ~38 cc/hr FMR OB AP PN: Exam - Physical Exam General: NAD, awake, alert and oriented HEENT: normocephalic and atraumatic, MMM, grossly normal vision, grossly normal hearing Neck: supple, FROM Heart: RRR, normal S1/S2, no murmurs/rubs/gallops, other (significant nonpitting edema in B/L upper & LEs up to elbows & knees) General: CTAB, no respiratory distress, good air movement, no rales/rhonchi, no wheezing, no retractions Abdomen: gravid, bowel sound present Musculoskeletal: other (decreased ROM in B/L hands 2/2 edema) Neurological: cranial nerves II through XII intact, sensation to pain,touch and proprioception grossly normal, DTR +2, no clonus, no focal deficit Skin: no rash, good tugor Lymphatic: no unusual bruising or bleeding, no purpura, no petechia Psychiatric: intact recent and remote memory, good judgement and insight, normal mood and affect FMR OB AP PN: Data - Labs Lab results: Laboratory Results - last 24 hr 11/08/19 11/08/19 11/08/19 06:53 06:53 06:53 WBC RBC Hgb Hct MCV MCH MCHC RDW Plt Count MPV Neutrophils % (Manual) Band Neuts % (Manual) Lymphocytes % (Manual) Monocytes % (Manual) Myelocytes % Lymphocytes # Sodium Potassium Chloride Carbon Dioxide Anion Gap BUN Creatinine Estimated GFR (MDRD) Glucose Calcium Magnesium 6.3 H Total Bilirubin 0.4 0.4 Direct Bilirubin 0.2 AST 19 ALT 14 Alkaline Phosphatase 75 Lactate Dehydrogenase 239 H Serum Total Protein 5.8 L Albumin 2.9 L Globulin Albumin/Globulin Ratio 11/08/19 11/08/19 11/08/19 06:53 06:53 06:53 WBC 22.8 H RBC 3.46 L Hgb 10.8 L Hct 32.0 L MCV 92.5 MCH 31.2 H MCHC 33.8 RDW 12.2 Plt Count Cancelled 247 MPV 8.4 Neutrophils % (Manual) Band Neuts % (Manual) Lymphocytes % (Manual) Monocytes % (Manual) Myelocytes % Lymphocytes # Sodium 136 Potassium 3.4 L Chloride 105 Carbon Dioxide 18 L Anion Gap 16 BUN 14 Creatinine 0.65 Estimated GFR (MDRD) Greater than 90 Glucose 111 H Calcium 7.7 L Magnesium Total Bilirubin Direct Bilirubin AST ALT Alkaline Phosphatase Lactate Dehydrogenase Serum Total Protein Albumin Globulin Albumin/Globulin Ratio 11/08/19 11/09/19 11/09/19 13:52 03:38 03:38 WBC 24.5 H RBC 3.77 L Hgb 11.9 L Hct 35.0 L MCV 92.9 MCH 31.5 H MCHC 33.9 RDW 12.8 Plt Count 254 MPV 8.2 Neutrophils % (Manual) 85 H Band Neuts % (Manual) 11 Lymphocytes % (Manual) 1 L Monocytes % (Manual) 2 Myelocytes % 1 H Lymphocytes # Not Reportable Sodium 135 L Potassium 3.6 Chloride 106 Carbon Dioxide 18 L Anion Gap 15 BUN 18 Creatinine 0.72 Estimated GFR (MDRD) Greater than 90 Glucose 123 H Calcium 7.3 L Magnesium 6.6 H Total Bilirubin 0.4 Direct Bilirubin AST 19 ALT 14 Alkaline Phosphatase 65 Lactate Dehydrogenase Serum Total Protein 6.0 Albumin 3.0 L Globulin 3.0 Albumin/Globulin Ratio 1.0 L 11/09/19 03:38 WBC RBC Hgb Hct MCV MCH MCHC RDW Plt Count MPV Neutrophils % (Manual) Band Neuts % (Manual) Lymphocytes % (Manual) Monocytes % (Manual) Myelocytes % Lymphocytes # Sodium Potassium Chloride Carbon Dioxide Anion Gap BUN Creatinine Estimated GFR (MDRD) Glucose Calcium Magnesium Total Bilirubin Direct Bilirubin AST ALT Alkaline Phosphatase Lactate Dehydrogenase 287 H Serum Total Protein Albumin Globulin Albumin/Globulin Ratio FMR OB AP PN: A/P - Problem List (1) Intrauterine Current Visit: Yes Status: Acute Code(s): Z34.90 - ENCNTR FOR SUPRVSN OF NORMAL , UNSP, UNSP TRIMESTER Comment: @ 28.6 wks (2) Pre-eclampsia, severe Current Visit: Yes Status: Acute Code(s): O14.10 - SEVERE PRE-ECLAMPSIA, UNSPECIFIED TRIMESTER (3) Chronic hypertension affecting Current Visit: Yes Status: Chronic Code(s): O10.919 - UNSP PRE-EXISTING HTN COMP , UNSP TRIMESTER (4) Polycystic kidney disease Current Visit: Yes Status: Chronic Code(s): Q61.3 - POLYCYSTIC KIDNEY, UNSPECIFIED Disposition: 29YO @ 29.1 WGA by LMP c/w 8 week sono who presented to L&D for evaluation for severe peripheral edema and was found to have developed pre-e with severe range pressures superimposed on cHTN. # cHTN with superimposed pre-e with severe features - Patient presented to L&D with multiple severe range pressures as high as 200s systolic. Other than LE edema was completely asymptomatic. Urine protein creatinine ratio ~9 with significant proteinuria & uric acid just over 7. - Had recurrent severe range pressures overnight that responded to 10mg IV hydralazine x1 & 30mg PO nifedipine x2. No severe range since last dose of nifedipine @ ~2100 yesterday. Also reported clonus & hyper-reflxia overnight which has resolved this AM but patient has become oliguric again with average UO since ~0400 38cc/hr. Will give a 1x dose of IV lasix & resume Mg therapy in anticipation of delivery via C/S this AM. - Continue PRN hydralazine & KEMAR procardia & HCTZ for BP control & consider increasing AM nifedipine dose to 60 this AM. - HELLP labs WNLs overnight again. Will continue to trend. - Plan to proceed with delivery via pLTCS this AM given recurrent oliguria, severe edema & persistently elevated & borderline pressures despite increasing KEMAR BP regimen. # sIUP @ 29.1 wks gestation - BPP 01/06 on admission & EFW ~1419g. - Barrel Lathe Operator on board & educated parents on likely course in anticipation of possible need for delivery if BPs remain uncontrolled. Appreciate the consultation and recommendations. Will be present at time of delivery. - Continue PNVs. # Polycystic Kidney disease - Aware,noted incidentally on US during . Most likely reason for cHTN. Will need nephro follow-up following delivery. # ASCUS pap 08/18 - colpo 6 wk pp Dispo: Will resume Mg therapy & plan to proceed with delivery via pLTCS this AM for reasons noted above. Discussion: Date/Time: 11/09/19 0657 This H&P was discussed with Dr. Wan and Dr. Melo who agree with the above documentation and plan. Addendum - Attending - Attending Attestation Date/Time: 11/09/19 8726 I personally evaluated the patient and discussed the management with Dr. Wan this morning. I agree with the History, Examination, Assessment and Plan documented above with any addition or exceptions noted below.
[2019-11-09] MEDS ORDERED: Furosemide 40 MG/4 ML VIAL SLOW IVP SCH (07:30)
[2019-11-09] MEDS ORDERED: Calcium Gluconate 4.6 MEQ in Sodium Chloride 0.9% 100 ML IVPB PRN (07:50)
[2019-11-09] MEDS ORDERED: Magnesium Sulfate 20 GM/WATER 500 ML BAG IVPB SCH (07:50)
[2019-11-09] MEDS ORDERED: Potassium Chloride 20 MEQ TAB PO SCH ×2 (08:00)
[2019-11-09] MEDS ORDERED: Magnesium Sulfate 20 gm/500 ml 20 GM/500 ML BAG IVPB SCH (08:00)
[2019-11-09] MEDS ORDERED: Bicitra 30 ML UDCUP PO SCH (08:15)
[2019-11-09] MEDS ORDERED: CEFAZOLIN 2 GM in Premix Bag 1 BAG IVPB SCH (08:15)
--- NOTE | 2019-11-09 08:29 | PDOC.BPN ---
- Brief Progress Note Reviewed status overnight, noting progressive oliguria. Diffuse edema is increasing. Overnight BP required prn dosing of hydralazine for sever range in spite of increases to baseline therapy. Discussed clinical status with Nicolette and her . We are recommending delivery for end organ damage from severe pre-Eclampsia. Discussed reasons for expeditious delivery via primary . Discussed risks of such as bleeding, infection, hysterectomy, and . Restarting magnesium infusion for intrapartum and post seizure prophylaxis. Nursing and anesthesia notified.
[2019-11-09] MEDS ORDERED: MORPHINE 5 MG/10 ML PF VIAL ONE (08:43)
[2019-11-09] MEDS ORDERED: Oxytocin 10 UNITS/ML VIAL ONE ×2 (08:43→10:33)
[2019-11-09] MEDS ORDERED: PHENYLEPHRINE-NS 100 MCG/ML 10 ML SYRINGE ONE ×2 (08:44→09:47)
[2019-11-09] MEDS ORDERED: [UNRECOGNIZED DRUG - REMARK] PO SCH (09:00)
[2019-11-09] MEDS ORDERED: Aspirin 81 mg Enteric Coated Tablet PO SCH (09:00)
[2019-11-09] MEDS ORDERED: Ondansetron PF 4 MG/2 ML Vial ONE (10:02)
[2019-11-09] MEDS ORDERED: Dexamethasone 4 mg/ml Vial ONE (10:02)
[2019-11-09] MEDS ORDERED: Bisacodyl 10 MG SUPP PR PRN (10:42)
[2019-11-09] MEDS ORDERED: diphenhydrAMINE 25 MG CAP PO PRN (10:42)
[2019-11-09] MEDS ORDERED: Promethazine HCl 25 MG/ML VIAL IM PRN ×2 (10:42→11:01)
[2019-11-09] MEDS ORDERED: Simethicone Chewable 80 MG TAB PO PRN (10:42)
[2019-11-09] MEDS ORDERED: Lanolin Ointment 7 GM TUBE TOP PRN (10:42)
[2019-11-09] MEDS ORDERED: NS / Oxytocin 40 units/1000ml 1,000 ML IV SCH (10:45)
[2019-11-09] MEDS ORDERED: Promethazine HCl 25 MG SUPP PR PRN (11:01)
[2019-11-09] MEDS ORDERED: Ketorolac Tromethamine 30 MG/ML VIAL IVP PRN (11:01)
[2019-11-09] MEDS ORDERED: diphenhydrAMINE 50 MG/ML VIAL IVP PRN (11:01)
[2019-11-09] MEDS ORDERED: Naloxone HCl 0.4 mg/ml Vial IVP PRN ×2 (11:01)
[2019-11-09] MEDS ORDERED: Naloxone HCl 0.4 mg/ml Vial IV PRN (11:01)
[2019-11-09] MEDS ORDERED: Ondansetron PF 4 MG/2 ML Vial IVP PRN (11:01)
[2019-11-09] MEDS ORDERED: Communication Order-Pharmacy FS SCH (11:15)
[2019-11-09] MEDS ORDERED: Ketorolac Tromethamine 30 MG/ML VIAL ONE (11:38)
[2019-11-09] MEDS ORDERED: diphenhydrAMINE 50 MG/ML VIAL ONE (12:33)
--- NOTE | 2019-11-09 13:08 | PDOC.OBPPN ---
FMR OB PN: Subj - Interval History Hospital Day: 3 Day: 0 Chief Complaint: itching Indentification: G1 now P1001 who is PP day #0 s/p pLTCS for pre-e with severe fts on Mg Interval History: Patient's BPs WNLs & diruesing well since delivery. FMR OB PN: Obj - Maternal Vital signs: BP: 127/65 HR: 84 Pox: 96% on RA Wt: 103.873 kg - Urine output I&O: 350mL over last 1.5 hours, 400mL noted following delivery - Pain Management Pain scale: 0 Intervention: IV medication FMR OB PN: Exam - Physical Exam General: NAD, awake, alert and oriented HEENT: normocephalic and atraumatic, MMM, grossly normal vision, grossly normal hearing Neck: supple, FROM Heart: RRR, normal S1/S2, no murmurs/rubs/gallops, other (markedly improved upper and lower ext edema compared to this AM) General: CTAB, no respiratory distress, good air movement, no rales/rhonchi, no wheezing, no retractions Abdomen: soft, bowel sound present Musculoskeletal: FROM in all four extremities Neurological: cranial nerves II through XII intact, sensation to pain,touch and proprioception grossly normal, DTR +3, no focal deficit, other (slight clonus noted in LLE but not right) Skin: no rash, good tugor : bandage intact Lymphatic: no unusual bruising or bleeding, no purpura, no petechia Psychiatric: intact recent and remote memory, good judgement and insight, normal mood and affect FMR OB PN: Data - Labs Lab results: Laboratory Results - last 24 hr 11/07/19 11/08/19 11/09/19 13:59 13:52 03:38 WBC 24.5 H RBC 3.77 L Hgb 11.9 L Hct 35.0 L MCV 92.9 MCH 31.5 H MCHC 33.9 RDW 12.8 Plt Count 254 MPV 8.2 Neutrophils % (Manual) 85 H Band Neuts % (Manual) 11 Lymphocytes % (Manual) 1 L Monocytes % (Manual) 2 Myelocytes % 1 H Lymphocytes # Not Reportable Sodium Potassium Chloride Carbon Dioxide Anion Gap BUN Creatinine Estimated GFR (MDRD) Glucose Calcium Magnesium 6.6 H Total Bilirubin AST ALT Alkaline Phosphatase Lactate Dehydrogenase Serum Total Protein Albumin Globulin Albumin/Globulin Ratio Blood Type A POSITIVE Antibody Screen NEGATIVE Crossmatch See Detail 11/09/19 11/09/19 11/09/19 03:38 03:38 03:38 WBC RBC Hgb Hct MCV MCH MCHC RDW Plt Count MPV Neutrophils % (Manual) Band Neuts % (Manual) Lymphocytes % (Manual) Monocytes % (Manual) Myelocytes % Lymphocytes # Sodium 135 L Potassium 3.6 Chloride 106 Carbon Dioxide 18 L Anion Gap 15 BUN 18 Creatinine 0.72 Estimated GFR (MDRD) Greater than 90 Glucose 123 H Calcium 7.3 L Magnesium 4.1 H Total Bilirubin 0.4 AST 19 ALT 14 Alkaline Phosphatase 65 Lactate Dehydrogenase 287 H Serum Total Protein 6.0 Albumin 3.0 L Globulin 3.0 Albumin/Globulin Ratio 1.0 L Blood Type Antibody Screen Crossmatch FMR OB PN: A/P - Problem List (1) Intrauterine Current Visit: Yes Status: Acute Code(s): Z34.90 - ENCNTR FOR SUPRVSN OF NORMAL , UNSP, UNSP TRIMESTER Comment: @ 28.6 wks (2) Pre-eclampsia, severe Current Visit: Yes Status: Acute Code(s): O14.10 - SEVERE PRE-ECLAMPSIA, UNSPECIFIED TRIMESTER (3) Chronic hypertension affecting Current Visit: Yes Status: Chronic Code(s): O10.919 - UNSP PRE-EXISTING HTN COMP , UNSP TRIMESTER (4) Polycystic kidney disease Current Visit: Yes Status: Chronic Code(s): Q61.3 - POLYCYSTIC KIDNEY, UNSPECIFIED (5) examination following delivery Current Visit: Yes Status: Acute Code(s): Z39.2 - ENCOUNTER FOR ROUTINE FOLLOW-UP Disposition: 29YO @ 29.1 WGA by LMP c/w 8 week sono who presented to L&D for evaluation for severe peripheral edema and was found to have developed pre-e with severe range pressures superimposed on cHTN. # cHTN with superimposed pre-e with severe features - Patient presented to L&D with multiple severe range pressures as high as 200s systolic. Other than LE edema was completely asymptomatic. Urine protein creatinine ratio ~9 with significant proteinuria & uric acid just over 7. - Had recurrent severe range pressures overnight that responded to 10mg IV hydralazine x1 & 30mg PO nifedipine x2. No severe range since last dose of nifedipine @ ~2100 yesterday. Also reported clonus & hyper-reflexia overnight which has resolved this AM but patient had become oliguric again with average UO since ~0400 38cc/hr. s/p 1x dose of 40mg IV lasix & resumption of Mg therapy @ ~0845 this AM. Decision was made to proceed with pLTCS and patient has clinically improved significantly since delivery w/ normal range BPs & increased UO of 350mL over last 1.5 hours. - Serum Mg level 4.1 before resuming therapy this AM. Will recheck @ 1700 today. - Continue to monitor BPs closely w/ Q4Hr Mg checks until 24 hours s/p delivery. Will consider de-escalating PM BP regimen based on BPs over course of afternoon. # PP day #0 s/p pLTCS for problem #1 - Pain well controlled, tolerating liquids PO. Shah still in place 2/2 Mg therapy. Lovenox for VTE PPX to start @ 2100 today given significant proteinuria since admission and problem noted below. - Continue routine post-C/S care. # Polycystic Kidney disease - Aware, noted incidentally on US during . Most likely reason for cHTN. Will need nephro follow-up following delivery. # ASCUS pap 08/18 - colpo 6 wk pp Dispo: Will continue Mg therapy until 24 hours s/p delivery & continue Q4H Mg checks to evaluate for s/s of toxicity. Discussion: Date/Time: 11/09/19 5400 This H&P was discussed with Dr. Wan & Dr. Melo who agree with the above documentation and plan.
[2019-11-09] MEDS ORDERED: Ibuprofen 800 MG TAB PO SCH (14:00)
--- NOTE | 2019-11-09 17:11 | PDOC.BPN ---
- Brief Progress Note S: Patient reports feeling much better since delivery. No pain, vision changes, CARABALLO, SOB, or chest pain. Significantly better edema with full ROM in hands. Feels a little drowsy from Mg. O: BPs 154-124 systolic since delivery. All diastolics WNLs. BP: 126/66 HR: 73 UO: 45-100 mL/hr for last 4 hours PE: General: NAD Heart: RRR, no murmurs Pulm: Lungs CTAB MSK: Edema markedly improved in B/L upper & LEs Neuro: No focal deficits, hyporeflexia noted A/P: Pre-e w/ severe features superimposed on cHTN: Continue IV Mg therapy pending repeat serum Mg level @ 1700. Will hold antihypertensives unless BP reaches severe range. Continue monitoring overnight in L&D ICU.
[2019-11-09] MEDS ORDERED: Enoxaparin Sodium 40 MG/0.4 ML SYRINGE SC SCH (21:00)
[2019-11-09] MEDS: HYDROcodone/Acetaminophen 5/325 mg Tablet PO PRN (21:09)
--- NOTE | 2019-11-09 21:19 | PDOC.BPN ---
- Brief Progress Note S: Patient reports feeling much better. No CARABALLO, SOB, or chest pain. Significantly better edema with full ROM in hands. Feels a little drowsy from Mg. She states she has some vision lag on the mag. She also complains of some pain at the incision site O: BPs 130-140 systolic since last check. All diastolics WNLs. BP: 130/60 HR: 76 UO: 75-150 mL/hr for last 4 hours PE: General: NAD Heart: RRR, no murmurs Pulm: Lungs CTAB MSK: Edema markedly improved in B/L upper & LEs Neuro: No focal deficits, Reflexs 2+ brachial, radial, and patellar Mag level: 7.4 A/P: Pre-e w/ severe features superimposed on cHTN: Continue IV Mg therapy. Will hold antihypertensives unless BP reaches severe range. Continue monitoring overnight in L&D ICU.
[2019-11-09] MEDS: NIFEdipine XL 30 MG TAB PO SCH (21:40)
[2019-11-09] MEDS: Hydrochlorothiazide 25 MG TAB PO SCH (21:40)
[2019-11-09] MEDS: Prenatal Vitamin 1 TAB PO SCH (21:41)
[2019-11-09] MEDS: Ferrous Sulfate 325 MG TAB PO SCH (21:45)
[2019-11-09] MEDS: Docusate Calcium (SURFAK) 240 MG CAP PO SCH (22:45)
--- NOTE | 2019-11-10 01:34 | PDOC.BPN ---
- Brief Progress Note S: She is doing well. No CARABALLO, vision changes, abdominal pain, SOB, or chest pain. Edema similar to last check with full ROM in hands. Vision lag has resolved. O: BPs 130s/60-70s HR: 60-80s UO: 40-70 mL/hr for last 4 hours. PE: General: NAD Heart: RRR, no murmurs Pulm: Lungs CTAB MSK: Edema markedly improved in B/L upper & LEs Neuro: No focal deficits, Reflexs 2+ brachial, radial, and patellar. No clonus Mag level: 7.4 A/P: Pre-e w/ severe features superimposed on cHTN: Continue IV Mg therapy. Will hold antihypertensives unless BP reaches severe range. Continue monitoring overnight in L&D ICU.
--- NOTE | 2019-11-10 04:54 | PDOC.BPN ---
- Brief Progress Note S: She is doing well. No CARABALLO, vision changes, abdominal pain, SOB, or chest pain. Edema similar to last check with full ROM in hands. Vision lag has resolved. O: BPs 120s-140s/60-70s HR: 60-80s UO: 40-100 mL/hr overnight PE: General: NAD Heart: RRR, no murmurs Pulm: Lungs CTAB MSK: Edema markedly improved in B/L upper & LEs Neuro: No focal deficits, Reflexs 1+ brachial, radial, and patellar. No clonus Mag level: 7.4 A/P: Pre-e w/ severe features superimposed on cHTN: Continue IV Mg therapy. Will hold antihypertensives unless BP reaches severe range. Continue monitoring overnight in L&D ICU.
--- NOTE | 2019-11-10 07:03 | PDOC.OBPPN ---
FMR OB PN: Subj - Interval History Hospital Day: 4 Day: 1 Chief Complaint: mild abdominal pain Indentification: G1 now P0101 who is PP day #1 s/p pLTCS for pre-e w/ severe features. Interval History: BPs WNLs overnight w/o PO meds all day yesteday. UO WNLs. FMR OB PN: Obj - Maternal Vital signs: BP: 151/89 HR: 71 RR: 16 Tmax: 98.3F Wt: 103.873 kg - Urine output I&O: 11/09/19 11/10/19 11/11/19 06:59 06:59 06:59 Output Total 490 Balance -490 - Lochia Lochia: normal - Pain Management Intervention: oral medication FMR OB PN: Exam - Physical Exam General: NAD, awake, alert and oriented HEENT: normocephalic and atraumatic, MMM, no scleral icterus, grossly normal vision, grossly normal hearing, normal nasal mucosa Neck: supple, FROM Heart: RRR, normal S1/S2, no murmurs/rubs/gallops, pulses present, no edema General: CTAB, no respiratory distress, good air movement, no rales/rhonchi, no wheezing Abdomen: soft, fundus(cm) (firm just at umbilicus), other (appropriately TTP) Musculoskeletal: FROM in all four extremities Neurological: cranial nerves II through XII intact, sensation to pain,touch and proprioception grossly normal, DTR +1, no clonus, no focal deficit Skin: no rash, good tugor : incision healing well, no erythema, no edema, no drainage, appropriately tender Lymphatic: no unusual bruising or bleeding, no purpura, no petechia Psychiatric: intact recent and remote memory, good judgement and insight, normal mood and affect FMR OB PN: Data - Labs Lab results: Laboratory Results - last 24 hr 11/07/19 11/09/19 11/09/19 13:59 03:38 08:04 Magnesium 4.1 H COVID-19 PCR Not Detected Blood Type A POSITIVE Antibody Screen NEGATIVE Crossmatch See Detail 11/09/19 16:59 Magnesium 7.2 H COVID-19 PCR Blood Type Antibody Screen Crossmatch FMR OB PN: A/P - Problem List (1) Intrauterine Current Visit: Yes Status: Resolved Code(s): Z34.90 - ENCNTR FOR SUPRVSN OF NORMAL , UNSP, UNSP TRIMESTER Comment: @ 28.6 wks (2) Pre-eclampsia, severe Current Visit: Yes Status: Acute Code(s): O14.10 - SEVERE PRE-ECLAMPSIA, UNSPECIFIED TRIMESTER Qualifiers: Trimester: third trimester Qualified Code(s): O14.13 - Severe pre-eclampsia , third trimester (3) Chronic hypertension affecting Current Visit: Yes Status: Chronic Code(s): O10.919 - UNSP PRE-EXISTING HTN COMP , UNSP TRIMESTER (4) Polycystic kidney disease Current Visit: Yes Status: Chronic Code(s): Q61.3 - POLYCYSTIC KIDNEY, UNSPECIFIED (5) examination following delivery Current Visit: Yes Status: Acute Code(s): Z39.2 - ENCOUNTER FOR ROUTINE FOLLOW-UP Disposition: 29YO @ 29.1 WGA by LMP c/w 8 week sono who presented to L&D for evaluation for severe peripheral edema and was found to have developed pre-e with severe range pressures superimposed on cHTN. # cHTN with superimposed pre-e with severe features - Patient presented to L&D with multiple severe range pressures as high as 200s systolic. Other than LE edema was completely asymptomatic. Urine protein creatinine ratio ~9 with significant proteinuria & uric acid just over 7. - Attempted to control BP for ~48 hours to allow time for IM steroids to take effect for lung maturation for anticipated need for imminent delivery. Decision made to proceed with pLTCS yesterday after BPs started to rise again and patient was noted to be oliguric with severe diffuse edema. - BPs WNLs since delivery w/ normal UO overnight. Will resume KEMAR PO meds should BPs become >/= 160/110. D/c Mg therapy @ ~1000, 24 hours s/p delivery. Continue Q4H Mg checks until then. # PP day #1 s/p pLTCS for problem #1 - Pain well controlled on PO meds. Tolerating PO. Passing gas but no BM yet. Shah still in place 2/2 Mg therapy. Lovenox for VTE PPX given significant proteinuria since admission. - Continue routine post-C/S care. # Polycystic Kidney disease - Aware, noted incidentally on US during . Most likely reason for cHTN. Will need nephro follow-up following delivery. Nephrology consult placed today for patient to establish with them while inpatient per PCPs recs. # ASCUS pap 08/18 - colpo 6 wk pp Dispo: Will continue Mg therapy until 24 hours s/p delivery & continue routine post c/s care following d/c of Mg. Discussion: Date/Time: 11/10/19 0701 This H&P was discussed with Dr. Melo & Dr. Wan who agree with the above documentation and plan. Addendum - Attending - Attending Attestation Date/Time: 11/10/19 1011 I personally evaluated the patient and discussed the management with Dr. Ybarra. I agree with the History, Examination, Assessment and Plan documented above with any addition or exceptions noted below.
[2019-11-10] MEDS: HYDROcodone/Acetaminophen 5/325 mg Tablet PO PRN ×4 (07:42→20:05)
[2019-11-10 07:46] LABS: #Eosinphils 0.1 thou/uL (0.0-0.7); #Lymphocytes 1.5 thou/uL (1.20-3.40); #Monocytes 1.3 thou/uL (0.11-0.59); #Neutrophils 14.5 thou/uL (1.40-6.50); %Basophils 0.1 % (0.0-1.0); %Eosinophils 0.7 % (0.0-10.0); %Lymphocytes 8.3 % (21.0-51.0); %Monocytes 7.6 % (0.0-10.0); %Neutrophils 83.3 % (42.0-75.0); Hemoglobin 11.8 g/dL (12.0-16.0); Mean Corpuscular HGB CONC 33.5 g/dL (32.0-36.0); Mean Corpuscular Hemoglobin 31.8 pg (27.0-31.0); Mean Platelet Volume 8.3 fL (7.4-10.4); Platelet Count 255 thou/uL (130-400); RBC Distribution Width 12.6 % (11.5-14.5); Red Blood Cell (RBC) Count 3.72 mill/uL (4.20-5.40); White Blood Cell (WBC) Count 17.4 thou/uL (4.8-10.8)
[2019-11-10 08:09] LABS: ALT (SGPT) 14 U/L (8-55); AST (SGOT) 25 U/L (5-34); Albumin 2.9 g/dL (3.5-5.0); Alkaline Phosphatase 58 U/L (40-110); Anion Gap 14 mmol/L (10-20); BUN (Urea Nitrogen) 22 mg/dL (7.0-18.7); Bilirubin, Total 0.2 mg/dL (0.2-1.2); Calc. Creatinine Clearance 186 mL/min (70-130); Calcium 6.8 mg/dL (7.8-10.44); Carbon Dioxide 21 mmol/L (22-29); Chloride 103 mmol/L (98-107); Estimated GFR-MDRD Greater than 90; Globulin 2.8 g/dL (2.4-3.5); Glucose 94 mg/dL (70-105); Potassium 3.8 mmol/L (3.5-5.1); Protein, Total 5.7 g/dL (6.0-8.3); Sodium 134 mmol/L (136-145)
--- NOTE | 2019-11-10 08:48 | OP ---
DATE OF PROCEDURE: 11/09/2019 PREOPERATIVE DIAGNOSES: 1. Preeclampsia with severe features superimposed on chronic hypertension. 2. Oliguria. 3. Polycystic kidney disease. 4. Single viable intrauterine at 29 weeks and 1 day. POSTOPERATIVE DIAGNOSES: 1. Preeclampsia with severe features superimposed on chronic hypertension. 2. Oliguria. 3. Polycystic kidney disease. 4. Single viable intrauterine at 29 weeks and 1 day. PROCEDURE PERFORMED: Primary low-transverse section via Pfannenstiel incision. SURGEON: Munir Brody MD PHILLIP: Diaz Melo MD ASSISTANTS: Savage and Tate. ANESTHESIA: Epidural. ESTIMATED BLOOD LOSS: 600 mL. IV FLUIDS: 1 L. URINE OUTPUT: 400 mL, clear. SPECIMENS: Placenta to Pathology and cord gases. COMPLICATIONS: None. FINDINGS: Male , vertex position. Apgars pending. Weight 1.19 kg. Normal uterus, tubes, and ovaries with the exception of multiple subserosal fibroids. INDICATION AND CONSENT: This is a G1, P0, who was admitted to the hospital at 28 and 6 weeks by good dates for severe hypertension; however, over the next almost 48 hours, she was getting steroids, placed on magnesium, and received numerous antihypertensive therapies. Over the night prior to the , she became oliguric with less than 30 mL/kg of urine output per hour for over 8 hours. After discussion with the laborist and Dr. Melo, the decision was made to proceed with operative delivery. The patient understood the risks of to include, but not be limited to visceral or vascular injury, infection, blood loss and need for transfusion, prolonged hospitalization, and re-operation. Both her and her stated understanding and desired to proceed. All questions were answered. DESCRIPTION OF PROCEDURE: The patient was taken back to the operating room and regional anesthesia was obtained. She was prepped and draped in the dorsal supine position with the left lateral tilt, and 2 g of Ancef was given and a time-out was called. Again, she was prepped and draped in a sterile fashion. A transverse incision was made in the lower abdomen. This was carried down with a combination of sharp and blunt dissection. The fascia was incised bilaterally and extended bluntly and dissected bluntly off the rectus muscles. The abdomen was entered bluntly and high, and this revealed a uterus with a relatively well developed lower segment and vertex . A low-transverse incision was made and extended with cranial-caudal traction. The was delivered gently with good tone and respirations on delivery. Under guidance of Neonatology, 30 seconds of delayed cord clamping was performed. The cord was clamped and cut. The baby was handed off to awaiting NICU attendants. A cord segment was taken, and blood gases were obtained, cord blood was sampled, and placenta was delivered with controlled cord traction. The uterus was exteriorized and curetted with a dry lap. Hysterotomy was closed with 1 Monocryl in a running locked fashion with a second layer of horizontal mattress imbricating. Good hemostasis was noted. The gutters were cleaned. The uterus was replaced, and the hysterotomy was again re-inspected and was noted to be hemastatic x3. The rectus was inspected and noted not to be bleeding. The fascia was closed with 0 PDS in a running unlocked fashion. Subcutaneous tissue was irrigated and no bleeding was noted. The subcutaneous space was closed with simple interrupted 2-0 chromic, and the skin was closed with 4-0 Monocryl in a subcuticular fashion. Counts were correct x 2. No immediate complications were noted. Mom was taken back to her room with continued magnesium infusion. was taken to NICU on CPAP. Job ID: [id number] [facility]
[2019-11-10] MEDS ORDERED: Adacel (T-DAP) 0.5 ML SYRINGE IM ONE (09:00)
[2019-11-10] MEDS: Docusate Calcium (SURFAK) 240 MG CAP PO SCH ×2 (09:55→21:29)
[2019-11-10] MEDS: Prenatal Vitamin 1 TAB PO SCH (09:55)
[2019-11-10] MEDS: Enoxaparin Sodium 40 MG/0.4 ML SYRINGE SC SCH (10:24)
[2019-11-10] MEDS: Ferrous Sulfate 325 MG TAB PO SCH ×2 (15:37→21:38)
[2019-11-10] MEDS: hydrALAZINE 20 MG/ML VIAL SLOW IVP PRN (20:50)
--- NOTE | 2019-11-10 21:15 | CON ---
DATE OF CONSULTATION: HISTORY OF PRESENT ILLNESS: Ms. Page is a 29-year-old white female with known history of autosomal dominant polycystic kidney disease, which was found incidentally during her initial evaluation for her . During this , she was noted to have also been preeclamptic. Delivery by section was done, which improved the hypertension. She underwent a primary low transverse section via Pfannenstiel incision. According to the patient, her child had to be [facility] due to the development of pneumothorax?. We are now being consulted for her autosomal dominant polycystic kidney disease. Please note, the patient's mother had ESRD and underwent dialysis and subsequent renal transplantation. Since her transplantation, she is doing well. REVIEW OF SYSTEMS: Positive for postop pain. No chest pain or shortness of breath. No nausea. No vomiting. No syncopal episode, no headache, no diplopia. MEDICATIONS: 1. Ferrous sulfate 325 mg p.o. b.i.d. 2. Lovenox 40 mg subcu daily. 3. Docusate 240 mg p.o. b.i.d. 4. Hydralazine 10 mg IV p.r.n. 5. Hydrocodone p.r.n. 6. Zofran 4 mg IV q.6h p.r.n. 7. vitamin daily. PAST MEDICAL HISTORY: 1. History of preeclampsia. 2. History of chronic renal failure secondary to autosomal dominant polycystic kidney disease. PAST SURGICAL HISTORY: Recently status post section. SOCIAL HISTORY: The patient is single, one child, currently no alcohol, no IV drug abuse. Denies significant smoking. She is currently a student. She lives in [place], active lifestyle. FAMILY HISTORY: Positive family history of ESRD. ALLERGIES: NO KNOWN DRUG ALLERGIES. IMMUNIZATIONS: Up-to-date hospitalizations. Please see past medical history. PHYSICAL EXAMINATION: VITAL SIGNS: Blood pressure 142/81, heart rate 66, respiratory rate 16, temperature 98.9, O2 saturation 99%. GENERAL: The patient is awake, alert, comfortable, not in distress. SKIN: Adequate turgor. HEENT: Pinkish conjunctivae. Anicteric sclerae. NECK: No neck mass. No carotid bruits. No JVD. CHEST: No deformities. LUNGS: Clear breath sounds. No wheezing. No crackles. HEART: Normal sinus rhythm. No murmur, no gallops, no rubs. ABDOMEN: Globular, soft, mildly tender on the incisional site. EXTREMITIES: No edema, no deformities. NEUROLOGIC: Awake, oriented to 3 spheres. Moving all extremities. No tremors. No asterixis. No ataxia. LABORATORY DATA: November 10, 2019, white count 17.4, hemoglobin 11.8. Urine protein 833, urine creatinine 89.31. Sodium 134, potassium 3.8, chloride 103, carbon dioxide 21, BUN 22, creatinine 0.73, calcium 6.8, albumin 2.9. Serologies, syphilis nonreactive, COVID-19 negative, HIV negative, hepatitis B surface antigen nonreactive. ASSESSMENT AND PLAN: 1. Preeclampsia/proteinuria-clinically much improved HTN after delivery of the baby. Continue supportive care. 2. Chronic renal failure from autosomal dominant polycystic kidney disease. Renal function is within normal. However, she does have history of significant renal disease. She had an incidental finding of multiple cysts on her kidneys during the initial evaluation with her . She does have a family history of autosomal dominant polycystic kidney disease. Currently management is supportive. There is no indication for any renal biopsy. In the near future, we may need to re- evaluate the patient's protein spillage to see if this will be resolving spontaneously especially after her delivery. For the moment, agree with current management. We will be following up this patient at the outpatient [facility]. Please recall , if needed. Job ID: [id number] [facility]
[2019-11-11] MEDS: HYDROcodone/Acetaminophen 5/325 mg Tablet PO PRN ×4 (02:19→20:01)
[2019-11-11] MEDS: hydrALAZINE 20 MG/ML VIAL SLOW IVP PRN ×3 (04:35→14:12)
--- NOTE | 2019-11-11 07:02 | PDOC.OBPPN ---
FMR OB PN: Subj - Interval History Hospital Day: 5 Day: 2 Chief Complaint: Swelling Indentification: G1 now P1 who is PP day #2 s/p pLTCS for pre-e w/ severe features. Interval History: Severe range BPs early this AM that responded to hydralazine. FMR OB PN: Obj - Maternal Vital signs: BP: 158/88 HR: 67 RR: 18 Tmax: 99.4F Pox: 97% on RA Wt: 103.873 kg - Urine output I&O: 11/10/19 11/11/19 11/12/19 06:59 06:59 06:59 Intake Total 600 Output Total 490 850 Balance -490 -250 - Lochia Lochia: minimal - Pain Management Intervention: oral medication FMR OB PN: Exam - Physical Exam General: NAD, awake, alert and oriented HEENT: normocephalic and atraumatic, MMM, no scleral icterus, grossly normal vision, grossly normal hearing Neck: supple, FROM Heart: RRR, normal S1/S2, no murmurs/rubs/gallops General: CTAB, no respiratory distress, good air movement, no rales/rhonchi, no wheezing Abdomen: soft (firm at umbilicus), fundus(cm), bowel sound present Musculoskeletal: normal gait and station, FROM in all four extremities Neurological: cranial nerves II through XII intact, sensation to pain,touch and proprioception grossly normal, DTR +2, strength +3, no clonus Skin: no rash, good tugor, no jaundice : bandage intact, incision healing well, no erythema, no drainage, appropriately tender Lymphatic: no unusual bruising or bleeding, no purpura, no petechia Psychiatric: intact recent and remote memory, good judgement and insight, normal mood and affect - Pelvic Exam : no discharge, no edema, normal lochia FMR OB PN: Data - Labs Lab results: Laboratory Results - last 24 hr 11/07/19 11/07/19 11/10/19 13:59 22:23 07:17 WBC 17.4 H RBC 3.72 L Hgb 11.8 L Hct 35.3 L MCV 95.0 MCH 31.8 H MCHC 33.5 RDW 12.6 Plt Count 255 MPV 8.3 Neutrophils % 83.3 H Lymphocytes % 8.3 L Monocytes % 7.6 Eosinophils % 0.7 Basophils % 0.1 Neutrophils # 14.5 H Lymphocytes # 1.5 Monocytes # 1.3 H Eosinophils # 0.1 Basophils # 0.0 Haptoglobin 152 Sodium Potassium Chloride Carbon Dioxide Anion Gap BUN Creatinine Estimated GFR (MDRD) Glucose Calcium Total Bilirubin AST ALT Alkaline Phosphatase Serum Total Protein Albumin Globulin Albumin/Globulin Ratio Crossmatch See Detail 11/10/19 07:17 WBC RBC Hgb Hct MCV MCH MCHC RDW Plt Count MPV Neutrophils % Lymphocytes % Monocytes % Eosinophils % Basophils % Neutrophils # Lymphocytes # Monocytes # Eosinophils # Basophils # Haptoglobin Sodium 134 L Potassium 3.8 Chloride 103 Carbon Dioxide 21 L Anion Gap 14 BUN 22 H Creatinine 0.73 Estimated GFR (MDRD) Greater than 90 Glucose 94 Calcium 6.8 L Total Bilirubin 0.2 AST 25 ALT 14 Alkaline Phosphatase 58 Serum Total Protein 5.7 L Albumin 2.9 L Globulin 2.8 Albumin/Globulin Ratio 1.0 L Crossmatch FMR OB PN: A/P - Problem List (1) Intrauterine Current Visit: Yes Status: Resolved Code(s): Z34.90 - ENCNTR FOR SUPRVSN OF NORMAL , UNSP, UNSP TRIMESTER Comment: @ 28.6 wks (2) Pre-eclampsia, severe Current Visit: Yes Status: Acute Code(s): O14.10 - SEVERE PRE-ECLAMPSIA, UNSPECIFIED TRIMESTER Qualifiers: Trimester: third trimester Qualified Code(s): O14.13 - Severe pre-eclampsia , third trimester (3) Chronic hypertension affecting Current Visit: Yes Status: Chronic Code(s): O10.919 - UNSP PRE-EXISTING HTN COMP , UNSP TRIMESTER (4) Polycystic kidney disease Current Visit: Yes Status: Chronic Code(s): Q61.3 - POLYCYSTIC KIDNEY, UNSPECIFIED (5) examination following delivery Current Visit: Yes Status: Acute Code(s): Z39.2 - ENCOUNTER FOR ROUTINE FOLLOW-UP Disposition: 29YO @ 29.1 WGA by LMP c/w 8 week sono who presented to L&D for evaluation for severe peripheral edema and was found to have developed pre-e with severe range pressures superimposed on cHTN. # cHTN with superimposed pre-e with severe features - Patient presented to L&D with multiple severe range pressures as high as 200s systolic. Other than LE edema was completely asymptomatic. Urine protein creatinine ratio ~9 with significant proteinuria & uric acid just over 7. - Attempted to control BP for ~48 hours to allow time for IM steroids to take effect for lung maturation for anticipated need for imminent delivery. Decision made to proceed with pLTCS yesterday after BPs started to rise again and patient was noted to be oliguric with severe diffuse edema. - BPs in severe rang early this AM that initially responded to hydralazine but back up into 160s systolic on exam. Will resume KEMAR PO meds w/ 30mg nifedipine & 12.5 mg HCTZ BID & monitor BP closely this AM. - Patient also has fluctuating edema that is worse in the AM limiting her mobility. Will give 40mg IV lasix x1 this AM as well for this. # PP day #2 s/p pLTCS for problem #1 - Pain well controlled on PO meds. Tolerating PO. Passing gas but no BM yet. Voiding normally. Continue routine post-C/S care. # Polycystic Kidney disease - Aware, noted incidentally on US during . Most likely reason for cHTN. Nephro saw patient yesterday & agreed with current plan of care. Pt to follow-up with them upon discharge. # ASCUS pap 08/18 - colpo 6 wk pp Dispo: Will continue monitoring BPs closely after administration of KEMAR PO meds with possible d/c later today to allow patient to be with who was transferred OOT yesterday due to worsening respiratory status. Discussion: Date/Time: 11/11/19 0700 This H&P was discussed with Dr. Melo & Dr. Wan who agree with the above documentation and plan. Addendum - Attending - Attending Attestation Date/Time: 11/11/19 1025 I personally evaluated the patient and discussed the management with Dr. Ybarra. I agree with the History, Examination, Assessment and Plan documented above with any addition or exceptions noted below. Possible discharge today with better blood pressure control.
[2019-11-11] MEDS ORDERED: Furosemide 40 MG/4 ML VIAL SLOW IVP SCH ×2 (07:45→15:45)
[2019-11-11 07:55] LABS: #Eosinphils 0.1 thou/uL (0.0-0.7); #Lymphocytes 2.3 thou/uL (1.20-3.40); #Monocytes 1.3 thou/uL (0.11-0.59); #Neutrophils 11.2 thou/uL (1.40-6.50); %Basophils 0.3 % (0.0-1.0); %Eosinophils 0.4 % (0.0-10.0); %Lymphocytes 15.2 % (21.0-51.0); %Monocytes 8.5 % (0.0-10.0); %Neutrophils 75.7 % (42.0-75.0); Hemoglobin 11.9 g/dL (12.0-16.0); Mean Corpuscular HGB CONC 34.2 g/dL (32.0-36.0); Mean Corpuscular Hemoglobin 32.3 pg (27.0-31.0); Mean Corpuscular Volume 94.4 fL (78.0-98.0); Mean Platelet Volume 7.9 fL (7.4-10.4); Platelet Count 241 thou/uL (130-400); RBC Distribution Width 12.5 % (11.5-14.5); Red Blood Cell (RBC) Count 3.68 mill/uL (4.20-5.40); White Blood Cell (WBC) Count 14.8 thou/uL (4.8-10.8)
[2019-11-11] MEDS ORDERED: Potassium Chloride 10 MEQ TAB PO SCH (08:00)
[2019-11-11 08:17] LABS: ALT (SGPT) 16 U/L (8-55); AST (SGOT) 25 U/L (5-34); Alkaline Phosphatase 55 U/L (40-110); Anion Gap 11 mmol/L (10-20); BUN (Urea Nitrogen) 18 mg/dL (7.0-18.7); Bilirubin, Total 0.2 mg/dL (0.2-1.2); Calc. Creatinine Clearance 216 mL/min (70-130); Calcium 7.5 mg/dL (7.8-10.44); Carbon Dioxide 25 mmol/L (22-29); Chloride 104 mmol/L (98-107); Estimated GFR-MDRD Greater than 90; Globulin 2.8 g/dL (2.4-3.5); Glucose 92 mg/dL (70-105); Potassium 3.4 mmol/L (3.5-5.1); Protein, Total 5.8 g/dL (6.0-8.3); Sodium 137 mmol/L (136-145)
[2019-11-11] MEDS ORDERED: NIFEdipine XL 30 MG TAB PO SCH ×3 (09:00)
[2019-11-11] MEDS ORDERED: Hydrochlorothiazide 25 MG TAB PO SCH ×4 (09:00→21:00)
[2019-11-11] MEDS ORDERED: Sodium Chloride 0.9% 10 ML ONE ×3 (09:06→14:15)
[2019-11-11] MEDS: Enoxaparin Sodium 40 MG/0.4 ML SYRINGE SC SCH (09:09)
[2019-11-11] MEDS: Docusate Calcium (SURFAK) 240 MG CAP PO SCH ×2 (09:10→21:01)
[2019-11-11] MEDS: Prenatal Vitamin 1 TAB PO SCH (09:10)
[2019-11-11] MEDS: Ferrous Sulfate 325 MG TAB PO SCH ×2 (09:13→21:07)
[2019-11-11] MEDS ORDERED: Acetaminophen 500 MG TAB PO PRN (10:20)
[2019-11-11] MEDS: Ibuprofen 800 MG TAB PO SCH ×2 (11:27→21:01)
[2019-11-11] MEDS ORDERED: Labetalol 100 MG TAB PO SCH ×4 (12:00→21:00)
[2019-11-11] MEDS: NIFEdipine XL 30 MG TAB PO SCH ×2 (12:20→21:02)
--- NOTE | 2019-11-11 14:02 | PDOC.EVN ---
Event Note - Event Note Event Note: OBGYN informal consult [address] Wan. I have been briefed and updatd on patient's PP status and renal HX. Last BP around 20 minutes ago 180/100 or so. We have just called and asked for PRN hydralazine as is already ordered as standing med. RN team notified of need for BP meds per protocol. Pt needs oral med adjustment. Dr Melo also aware of plan. Baby in [facility] for EGA and respiratory issues. Meds: Procardia and Labetolol with dose adjustment. If not better on meds, may need to reconsider MagSulfate Hold on Mag now as ASX and may be needing med control first.Labs have been checked as follow up. BNP pending just to be conservative.
[2019-11-11] MEDS: Labetalol 100 MG TAB PO SCH (21:03)
[2019-11-12] MEDS: HYDROcodone/Acetaminophen 5/325 mg Tablet PO PRN ×2 (05:22→11:40)
[2019-11-12] MEDS: Ibuprofen 800 MG TAB PO SCH (05:23)
[2019-11-12 07:06] LABS: ALT (SGPT) 16 U/L (8-55); AST (SGOT) 25 U/L (5-34); Alkaline Phosphatase 54 U/L (40-110); Anion Gap 14 mmol/L (10-20); BUN (Urea Nitrogen) 18 mg/dL (7.0-18.7); Bilirubin, Total 0.2 mg/dL (0.2-1.2); Calc. Creatinine Clearance 218 mL/min (70-130); Calcium 8.3 mg/dL (7.8-10.44); Carbon Dioxide 23 mmol/L (22-29); Chloride 104 mmol/L (98-107); Estimated GFR-MDRD Greater than 90; Globulin 2.8 g/dL (2.4-3.5); Glucose 84 mg/dL (70-105); Potassium 3.6 mmol/L (3.5-5.1); Protein, Total 5.8 g/dL (6.0-8.3); Sodium 137 mmol/L (136-145)
[2019-11-12] MEDS ORDERED: Potassium Chloride 20 MEQ TAB PO SCH (08:00)
[2019-11-12 08:52] VITALS: BP 136/72; TEMP 98.9
[2019-11-12] MEDS: Prenatal Vitamin 1 TAB PO SCH (09:51)
[2019-11-12] MEDS: Docusate Calcium (SURFAK) 240 MG CAP PO SCH (09:51)
[2019-11-12] MEDS: NIFEdipine XL 30 MG TAB PO SCH (09:51)
[2019-11-12] MEDS: Ferrous Sulfate 325 MG TAB PO SCH (09:52)
[2019-11-12] MEDS: Labetalol 100 MG TAB PO SCH (09:52)
[2019-11-12] MEDS: Enoxaparin Sodium 40 MG/0.4 ML SYRINGE SC SCH (09:53)
[2019-11-12 12:39] LABS: Creatinine, Urine 57.31 mg/dL (47-110)
--- NOTE | 2019-11-12 13:55 | PDOC.PP ---
Post Progress Note Post Day #: 3 Subjective: Patient doing very well today. BP's yesterday evening and overnight were <140/ 90. Patient states swelling in upper extremities is much improved. She denies scotoma, RUQ pain, chest pain, cough, congestion, fever, or chills. Patient is ready to go home. She states lochia less than a period. Some abdominal pain associated with recent section. She did have a dose of hydrocodone this morning, but states she will be fine with motrin and tylenol at home for pain. Vital Signs (12 hours) Temp Pulse Resp BP BP Pulse Ox 11/12/19 09:52 89 136/72 11/12/19 09:51 89 136/72 11/12/19 08:00 98.9 F 89 18 136/72 98 11/12/19 05:20 98.3 F 70 18 129/69 Weight Weight 107.955 kg - Physical Examination General: NAD Cardiovascular: no m/r/g, RRR Respiratory: clear to auscultation bilaterally, non-labored breathing Abdominal: + bowel sounds, lochia (less than period), no distention, appropriately TTP Fundus firm & at: below umbilicus Extremities: negative homans (B) Skin: CS incision dry & intact, no rash Neurological: no gross focal deficits Psychiatric: A&Ox3, normal affect Result Diagrams: 11/11/19 07:45 11/12/19 06:33 Additional Labs: Post Labs Blood Type A POSITIVE 11/07/19 15:05 Hep Bs Antigen Non-Reactive S/CO (NonReactive) 11/07/19 13:59 (1) Pre-eclampsia, severe Code(s): O14.10 - SEVERE PRE-ECLAMPSIA, UNSPECIFIED TRIMESTER Status: Acute Qualifiers: Trimester: third trimester Qualified Code(s): O14.13 - Severe pre-eclampsia , third trimester (2) Chronic hypertension affecting Code(s): O10.919 - UNSP PRE-EXISTING HTN COMP , UNSP TRIMESTER Status : Chronic (3) Polycystic kidney disease Code(s): Q61.3 - POLYCYSTIC KIDNEY, UNSPECIFIED Status: Chronic (4) S/P primary low transverse Code(s): Z98.891 - HISTORY OF UTERINE SCAR FROM PREVIOUS SURGERY Status: Acute - Assessment/Plan 29YO @ 29.1 WGA by LMP c/w 8 week sono who presented to L&D for evaluation for severe peripheral edema and was found to have developed pre-e with severe range pressures superimposed on cHTN. cHTN with superimposed pre-e with severe features - Patient presented to L&D with multiple severe range pressures as high as 200s systolic. Other than diffuse edema was asymptomatic. Urine protein creatinine ratio ~9 with significant proteinuria & uric acid just over 7. - Attempted to control BP for ~48 hours to allow time for IM steroids to take effect for lung maturation for anticipated need for imminent delivery. Decision made to proceed with pLTCS yesterday after BPs started to rise again and patient was noted to be oliguric with severe diffuse edema. - BP's yesterday not well controlled. Patient required two doses of PRN medications. Regimen was changed to 200 mg labetolol BID and 30 mg nifedipine TID. She was also given a dose of lasix and diuresed nearly 2L. Patient's swelling today much improved. - Patient stable for d/c home on current BP regimen. Advised to check BP at home and to notify PCP if BP's become too low or rise >160/110. Patient very reliable and agreeable to plan. Her infant is in [place] in NICU. PP day #3 s/p pLTCS for problem #1 - Pain well controlled on PO meds. Tolerating PO. Passing gas. Voiding normally. Continue routine post-C/S care. - Discussed pain medication regimen. Patient ok with motrin/tylenol at home. No script for hydrocodone given. Polycystic Kidney disease - Aware, noted incidentally on US during . Most likely reason for cHTN. Nephro saw patient yesterday & agreed with current plan of care. Pt to follow-up with them upon discharge. - Discussed use of motrin given PCKD. Nephro ok'd short term use for post-op pain control. - Patient to follow with Dr. Dhillon in outpatient setting ASCUS pap 08/18 - colpo 6 wk pp Dispo: BP's well controlled overnight. Plan to d/c patient home today with close BP monitoring. Script given for breastpump. Addendum - Attending - Attending Attestation Date/Time: 11/12/19 3273 I personally evaluated the patient and discussed the management with Dr. Wan. I agree with the History, Examination, Assessment and Plan documented above with any addition or exceptions noted below.
== END 2019-11-12 11:45 | disposition home or self-care (01) | DRG 787 ==
LOC: L&D/OP 13:04 → L&D 16:58 → 3SW 11-10 15:14
PROVIDERS: ADMIT Student in an Organized Health Care Education/Training Program; ATTEND Student in an Organized Health Care Education/Training Program
PROC: 10E0XZZ Delivery of Products of Conception, External Approach (ICD-10-PCS; principal; 2019-11-09)
PROC: 10D00Z1 Extraction of Products of Conception, Low, Open Approach (ICD-10-PCS; 2019-11-09)
DX: O11.4 Pre-existing hypertension with pre-eclampsia, complicating childbirth (principal); O26.833 Pregnancy related renal disease, third trimester; Q61.2 Polycystic kidney, adult type; Z37.0 Single live birth; Z3A.28 28 weeks gestation of pregnancy; O10.92 Unspecified pre-existing hypertension complicating childbirth; N18.9 Chronic kidney disease, unspecified; Z11.59 Encounter for screening for other viral diseases; Z79.899 Other long term (current) drug therapy; Z79.82 Long term (current) use of aspirin; R34 Anuria and oliguria
CPT/HCPCS: 36415; 51702; 76815; 76819; 80048; 80053; 82247; 82570; 83010; 83615; 83735; 83880; 84156; 84550; 85025; 85027; 86780; 86850; 86900; 86901; 87340; 87389; 87635; 88307; 94799; 99285; J0360; J0690; J0702; J1100; J1200; J1650; J1885; J1940; J2274; J2405; J2550; J2590; J2765; J3475; Q0163; U0003